=== PATIENT | male | born 1945 | race Caucasian/White ===

== ENCOUNTER 2016-12-19 11:05 | Outpatient (CLI) | payer MEDICARE ==
[2016-12-19 11:12] LABS: CREATININE 1.2 mg/dL (0.6-1.2)
--- NOTE | 2016-12-19 15:17 | MRI Report ---
EXAM: RIGHT KNEE MRI WITHOUT CONTRAST EXAM DATE: 12/19/2016 12:33 PM. CLINICAL HISTORY: Right knee pain after twisting injury 2 weeks ago. COMPARISON: None. TECHNIQUE: Multiplanar, multisequence T1-weighted and fluid-sensitive sequences of the knee without c ontrast. Other: None. FINDINGS: Bones and articular cartilage: No acute fracture or bone lesions. Normal marrow signal. Articular car tilage is within normal limits. Medial Meniscus: Horizontal tear at the posterior horn and body. Lateral Meniscus: Horizontal tear at the anterior horn. Small parameniscal cyst adjacent to the later al aspect of the anterior horn. Cruciate Ligaments: The anterior and posterior cruciate ligaments are intact. Collateral Ligaments: The medial collateral and lateral collateral ligamentous structures are intact. Tendons: There is mild quadriceps and patellar tendinosis. Enthesophytes at the anterosuperior and an teroinferior aspects of the patella, distal aspect of the quadriceps tendon, and proximal aspect of t he patellar tendon. The semimembranosus and popliteus tendons are unremarkable. Musculature: No edema or fatty atrophy. Other: Small joint effusion. No popliteal cyst. No loose bodies. The medial and lateral retinacula a re intact. Diffuse subcutaneous edema. IMPRESSION: 1. Horizontal tear at the posterior horn and body of the medial meniscus. 2. Horizontal tear at the anterior horn lateral meniscus. Small parameniscal cyst adjacent to the ant erior horn lateral meniscal tear. 3. Quadriceps and patellar tendinosis. Enthesophytes at the quadriceps and patellar tendon and patell a. 4. Small joint effusion. 5. Diffuse subcutaneous edema. [facility] MUSCULOSKELET[facility] SECTION Referring Provider Line: [phone] SITE ID: [id number]
== END 2016-12-19 11:06 | disposition home or self-care (01) ==
LOC: DI 11:05
PROVIDERS: ATTEND Internal Medicine
DX: S83.241A Other tear of medial meniscus, current injury, right knee, initial encounter (principal); S83.281A Other tear of lateral meniscus, current injury, right knee, initial encounter; M25.461 Effusion, right knee; M67.88 Other specified disorders of synovium and tendon, other site
CPT/HCPCS: 36415; 82565

== ENCOUNTER 2017-01-21 04:23 | Outpatient (CLI) | payer MEDICARE | END 2017-01-21 04:24 | disposition critical access hospital (66) | LOC: EMS 04:23 | PROVIDERS: ATTEND Surgery | DX: R53.1 Weakness (principal); R26.81 Unsteadiness on feet; R32 Unspecified urinary incontinence; W06.XXXA Fall from bed, initial encounter; Y92.003 Bedroom of unspecified non-institutional (private) residence as the place of occurrence of the external cause | CPT/HCPCS: A0425; A0429 ==

== ENCOUNTER 2017-01-21 04:34 | Inpatient (IN) | payer MEDICARE ==
[2017-01-21] MEDS ORDERED: SODIUM CHLORIDE 0.9% 1,000 ML IV ONE ×2 (04:44→05:48)
[2017-01-21] MEDS ORDERED: ACETAMINOPHEN 500 MG TABLET PO STA (04:44)
[2017-01-21] MEDS ORDERED: ACETAMINOPHEN 500 MG TABLET PO ONE (04:47)
--- NOTE | 2017-01-21 04:57 | ED Physician Documentation ---
History of Present Illness - Stated complaint Stated Complaint: GLF/FEVER/weakness - Chief complaint Chief Complaint: Fever - Additonal information Additional information: Patient is a 71-year-old man with a history of hypertension, dyslipidemia, atrial fibrillation and benign prostatic hypertrophy. He presents tonight with generalized weakness fever and chills and inability to get off of the floor after fall the bed. He denies any chest pain or cough. He is unaware that he had a fever until he presented to the emergency department. He has no complaints of abdominal pain but did have a couple episodes of nausea vomiting earlier in the evening. There are no lower urinary symptoms although his says he presented like this in the past when he had a urinary tract infection. He does have a history of atrial fibrillation controlled with diltiazem and Coumadin. For the most part his says he is in atrial fibrillation now. His only surgical history is a open cholecystectomy that the patient says was complicated. Review of systems: For pertinent positive and negatives in the review of systems please see history of present illness. Otherwise all other systems have been reviewed and are negative. Dragon disclaimer: Parts of this medical record were created using voice recognition technology. Because of the inherent limitations of this system occasional same sounding word substitutions do occur and persist despite proofreading. Please read the document for context. Review of Systems Constitutional: reports: Fever, Chills, Myalgias Nose: denies: Rhinorrhea / runny nose, Foreign Body Throat: denies: Dental pain / toothache Cardiac: denies: Chest pain / pressure, Palpitations, Pedal edema, Calf pain Respiratory: denies: Dyspnea, Cough GI: reports: Nausea, Vomiting. denies: Abdominal Pain, Abdominal Swelling, Constipation, Diarrhea, Hematemesis : denies: Dysuria, Frequency, Hesitancy, Unable to Void Skin: denies: Rash Musculoskeletal: denies: Neck pain, Back pain, Extremity pain, Joint pain Neurologic: denies: Generalized weakness, Focal weakness, Numbness, Difficulty speaking PD PAST MEDICAL HISTORY - Past Medical History Past Medical History: Yes Cardiovascular: Hypertension, Atrial fibrillation Respiratory: Sleep apnea, CPAP use Neuro: None Endocrine/Autoimmune: None GI: GERD : None HEENT: Other Psych: None Musculoskeletal: None Derm: None - Past Surgical History Past Surgical History: Yes General: Cholecystectomy, Colonoscopy, EGD - Present Medications Home Medications: Ambulatory Orders Medication Instructions Recorded Confirmed Diltiazem HCl [Cartia Xt] 360 mg PO DAILY 02/26/13 01/21/17 Hydrochlorothiazide 25 mg PO DAILY 02/26/13 01/21/17 Ibuprofen 800 mg PO TID PRN 02/26/13 01/21/17 Lisinopril [Zestril] 40 mg PO BID 02/26/13 01/21/17 Clonidine HCl 0.1 mg PO DAILY 07/04/13 01/21/17 Doxazosin [Cardura] 16 mg PO DAILY 07/04/13 01/21/17 Timolol 0.5% Ophth Drops [Timoptic] 1 drops OPTH DAILY 07/04/13 01/21/17 Warfarin Sodium 2.5 mg PO DAILY 10/06/14 01/21/17 Warfarin Sodium 5 mg PO DAILY 10/06/14 01/21/17 Cephalexin [Keflex] 500 mg PO BID 03/14/16 01/21/17 HYDROcod/ACETAM 5/325 [Pratts 5/325] 1 - 2 ea PO Q6H PRN #15 tablet 03/14/16 - Allergies Allergies/Adverse Reactions: Allergies Allergy/AdvReac Type Severity Reaction Status Date / Time No Known Drug Allergies Allergy Verified 01/21/17 04:51 - Social History Does the pt smoke?: No Smoking Status: Never smoker Does the pt drink ETOH?: Yes Does the pt have substance abuse?: No - Immunizations Immunizations are current?: No - POLST Patient has POLST: No PD ED PE NORMAL - Vitals Vital signs reviewed: Yes - General General: Alert and oriented X 3, No acute distress, Well developed/nourished, Other (Patient is awake and alert he is a little slow to respond. He is flushed in appearance and warm to touch.) - HEENT HEENT: Atraumatic, Other (Very dry oral mucosa) - Neck Neck: Supple, no meningeal sign, No bony TTP - Cardiac Cardiac: Other (Irregularly irregular rhythm, tachycardia noted) - Respiratory Respiratory: No respiratory distress (Mild tachypnea otherwise clear lungs bilaterally good air movement and no respiratory distress) - Abdomen Abdomen: Normal bowel sounds (Protuberant but soft abdomen without any focal tenderness, bowel sounds normal active) - Back Back: No CVA TTP - Derm Derm: Normal color, Other - Extremities Extremities: No deformity (Flushed in appearance warm to touch), No tenderness to palpate - Neuro Neuro: Alert and oriented X 3, business administrator 2-12 intact, No motor deficit, No sensory deficit, Normal speech - Psych Psych: Normal mood, Normal affect Results - Vitals Vitals: Vital Signs - 24 hr 01/21/17 01/21/17 01/21/17 04:36 05:27 05:34 Temperature 38.2 C H Heart Rate 147 H 134 H 133 H Respiratory 22 20 16 Rate Blood Pressure 127/103 H 179/109 H 159/95 H O2 Saturation 94 94 94 Oxygen O2 Source Room air - Labs Labs: Laboratory Tests 01/21/17 01/21/17 01/21/17 04:49 04:49 04:49 WBC 22.6 H RBC 6.19 H Hgb 17.1 Hct 52.1 H MCV 84.2 MCH 27.6 MCHC 32.9 RDW 15.5 H Plt Count 148 MPV 8.9 Neut # Not Reportable Lymph # Not Reportable [place] # Not Reportable Eos # Not Reportable Baso # Not Reportable Absolute Nucleated RBC Not Reportable Total Counted 100 Band Neuts % (Manual) 12 H Reactive Lymphs % (Man) 3 Neutrophils # (Manual) 20.3 H Lymphocytes # (Manual) 1.1 L Monocytes # (Manual) 1.1 H Nucleated RBCs Not Reportable Differential Comment MANUAL DIFFERENTIAL Manual Slide Review Indicated Platelet Estimate NORMAL (130-450,000) Platelet Morphology NORMAL APPEARANCE RBC Morph Micro Appear NORMAL APPEARANCE Sodium 141 Potassium 3.0 L Chloride 106 Carbon Dioxide 23 Anion Gap 12.0 BUN 23 H Creatinine 1.3 H Estimated GFR (MDRD) 55 L Glucose 134 H Lactic Acid Calcium 9.7 Total Bilirubin 2.2 H AST 29 ALT 27 Alkaline Phosphatase 65 Troponin I < 0.04 B-Natriuretic Peptide Total Protein 7.1 Albumin 4.1 Globulin 3.0 Albumin/Globulin Ratio 1.4 Lipase 17 L 01/21/17 01/21/17 04:49 04:49 WBC RBC Hgb Hct MCV MCH MCHC RDW Plt Count MPV Neut # Lymph # [place] # Eos # Baso # Absolute Nucleated RBC Total Counted Band [place]uts % (Manual) Reactive Lymphs % (Man) Neutrophils # (Manual) Lymphocytes # (Manual) Monocytes # (Manual) Nucleated RBCs Differential Comment Manual Slide Review Platelet Estimate Platelet Morphology RBC Morph Micro Appear Sodium Potassium Chloride Carbon Dioxide Anion Gap BUN Creatinine Estimated GFR (MDRD) Glucose Lactic Acid 2.4 H Calcium Total Bilirubin AST ALT Alkaline Phosphatase Troponin I B-Natriuretic Peptide 389 H Total Protein Albumin Globulin Albumin/Globulin Ratio Lipase PD MEDICAL DECISION MAKING - ED course Complexity details: reviewed old records, reviewed results, re-evaluated patient , considered differential, d/w patient, d/w family, other (Hospitalist) ED course: This patient is a 71-year-old male with a history of hypertension and atrial fibrillation who presents with a complaint of generalized weakness. He went to bed feeling normal then woke up with shaking chills. He accidentally slid out of bed and did not sustain any injury but had a difficult time getting back up and subsequently EMS was called. He never lost consciousness his was talking with him the entire time. He denies any pain to the head, neck, chest abdomen and has no other symptoms other than generalized weakness and chills. He was noted to have a temperature here of 100.8 but I suspect his core temperature is a little warmer. He was given Oral Tylenol and an IV line was started. Sepsis workup ensued and the patient was fluid resuscitated with 1 L of crystalloid. Blood cultures and serum lactate were obtained. A chest x-ray shows no acute intrathoracic disease. EKG demonstrates atrial fibrillation with rapid ventricular response of rate is 143 bpm the QRS is normal the QT is within normal limits at 269 ms. The patient was given rate control with Cardizem 10 mg IV push followed by a Cardizem drip at 5 mg/h. This is increased to 10 mg an hour an additional 10 mg are given as a bolus. Blood work on this patient shows marked elevation of his white count of 22,000 there is a bandemia and a serum lactate is elevated at 2.4. We finally obtained a urine and although it looks concentrated is not objectively infected at this time. After obtaining all of her tests he was treated empirically with 1 g of Invanz. This patient has no abdominal pain or tenderness I suspect intra- abdominal source less likely. Disposition: Admission to the hospital, ICU Clinical impression: 1. Severe sepsis 2. Source unknown at this time-no evidence of intra-abdominal source clinically 3. Atrial fibrillation with rapid ventricular response on diltiazem drip Critical care time: Approximately 45 minutes. This time is independent of any procedures
[2017-01-21] MEDS ORDERED: diltiaZEM INJ 5 MG/ML VIAL IVP STA ×2 (05:04→05:49)
[2017-01-21] MEDS ORDERED: diltiaZEM INJ 125 MG in DEXTROSE 5% 100 ML IV STA (05:04)
[2017-01-21 05:12] LABS: BASOPHILS % (AUTO) 0.2 %; HCT - HEMATOCRIT 52.1 % (42.0-52.0); HGB - HEMOGLOBIN 17.1 g/dL (14.0-18.0); LYMPHOCYTES % (AUTO) 2.1 %; MEAN CORPUSCULAR HEMOGLOBIN 27.6 pg (27.0-31.0); MEAN CORPUSCULAR HGB CONC 32.9 g/dL (32.0-36.0); MEAN CORPUSCULAR VOLUME 84.2 fL (80.0-94.0); MEAN PLATELET VOLUME 8.9 fL (7.4-11.4); MONOCYTES % (AUTO) 6.8 %; NEUTROPHILS % (AUTO) 90.9 %; RED BLOOD COUNT 6.19 10^6/uL (4.70-6.10); RED CELL DISTRIBUTION WIDTH 15.5 % (12.0-15.0); UNCORRECTED WHITE BLOOD COUNT 22.6 x10^3/uL; WHITE BLOOD COUNT 22.6 x10^3/uL (4.8-10.8)
[2017-01-21] MEDS ORDERED: diltiaZEM INJ 5 MG/ML VIAL ONE (05:13)
[2017-01-21 05:16] LABS: ALBUMIN/GLOBULIN RATIO 1.4 (1.0-2.2); BILIRUBIN,TOTAL 2.2 mg/dL (0.2-1.0); CALCIUM 9.7 mg/dL (8.5-10.3); CREATININE 1.3 mg/dL (0.6-1.2); TOTAL PROTEIN 7.1 g/dL (6.7-8.2)
--- NOTE | 2017-01-21 05:35 | XRAY Preliminary Report ---
Exam: XR Chest 1 View IMPRESSION: Small lung volumes. Mild CHF pattern. [facility] SITE ID: [id number]
--- NOTE | 2017-01-21 05:37 | XRAY Report ---
EXAM: CHEST RADIOGRAPHY EXAM DATE: 01/21/2017 05:04 AM. CLINICAL HISTORY: Fever, weakness, chills since last night. Fall. COMPARISON: 07/23/2013, 07/12/2013 TECHNIQUE: 1 view. FINDINGS: Lungs/Pleura: Small lung volumes. There is mild central pulmonary vascular congestion. No definite pn eumothorax or significant effusion. Mediastinum: Mild enlargement of the cardiac silhouette. Other: Right hemidiaphragm eventration. Severe right shoulder degenerative change. IMPRESSION: Small lung volumes. Mild CHF pattern. [facility] Referring Provider Line: [phone] SITE ID: [id number]
[2017-01-21 05:41] LABS: BAND NEUTROPHILS % (MANUAL) 12 %; LYMPHOCYTES % (MANUAL) 2 %; NEUTROPHILS % (MANUAL) 78 %; NP AUTO DIFFERENTIAL? YES; NP MAN DIFFERENTIAL? NO; PLATELET ESTIMATE, MANUAL NORMAL (130-450,000) (NORMAL); PLATELET MORPHOLOGY NORMAL APPEARANCE (NORMAL); TOTAL CELLS COUNTED 100
[2017-01-21] MEDS ORDERED: ERTAPENEM 1 GM in SODIUM CHLORIDE 0.9% MINIBAG 100 ML IV STA (06:12)
[2017-01-21 06:19] LABS: BILIRUBIN,URINE NEGATIVE (NEGATIVE)
[2017-01-21 06:38] LABS: UA w/ MICROSCOPIC CHARGE YES
[2017-01-21 06:44] LABS: UR CULTURE IF IND NOT INDICATED; WBC,URINE 0-3 /HPF (0-3)
[2017-01-21] MEDS ORDERED: ONDANSETRON ODT 4 MG TABLET TL PRN (06:49)
[2017-01-21] MEDS ORDERED: SODIUM CHLORIDE FLUSH 0.9% 10 ML SYRINGE IVP PRN (06:49)
[2017-01-21] MEDS ORDERED: ONDANSETRON 4 MG/2 ML VIAL IVP PRN (06:49)
[2017-01-21] MEDS ORDERED: ACETAMINOPHEN 325 MG TABLET PO PRN (06:49)
[2017-01-21] MEDS ORDERED: HYDROcod/ACETAM 5/325 MG TABLET PO PRN (06:49)
[2017-01-21] MEDS ORDERED: PIPERACILLIN/TAZOBACTAM 3.375 GM in SODIUM CHLORIDE 0.9% MINIBAG 100 ML IV SCH (06:55)
--- NOTE | 2017-01-21 07:39 | CT Preliminary Report ---
Exam: CT Abdomen/Pelvis W/O IMPRESSION: 1. No kidney stone or hydronephrosis. 2. Nonspecific bilateral perinephric fat stranding, nonspecific perinephric lymphedema versus infecti on. 3. Status post cholecystectomy. 4. Moderate to severe descending and severe sigmoid diverticulosis without diverticulitis. 5. Small bilateral fat-containing inguinal hernias. 6. Subsegmental bibasilar as well as patchy left basilar airspace disease. These likely reflect a com bination of atelectasis, aspiration, and/or pneumonia. SITE ID: [id number]
--- NOTE | 2017-01-21 07:42 | CT Report ---
EXAM: CT ABDOMEN AND PELVIS (CT KUB) EXAM DATE: 01/21/2017 07:21 AM. CLINICAL HISTORY: Severe sepsis. COMPARISONS: None. TECHNIQUE: Routine axial helical CT imaging was performed through the abdomen and pelvis without IV c ontrast. Reconstructions: Coronal and sagittal. In accordance with CT protocol optimization, one or more of the following dose reduction techniques w ere utilized for this exam: automated exposure control, adjustment of mA and/or KV based on patient s ize, or use of iterative reconstructive technique. FINDINGS: Lack of intravenous contrast reduces exam sensitivity and specificity. Kidneys and ureters: There is no hydronephrosis or evident kidney stone. There is a 3.1 cm cyst arisi ng from the posterior aspect of the right mid to lower kidney (image 47 series 3 posterior. There is a anterolaterally located left upper kidney cyst measuring 4.4 x 4.2 cm (image 49 series 3 close term . Nonspecific bilateral perinephric fat stranding. Abdominal Solid Organs: Abdominal parenchymal organs are without significant abnormality within the c onfines of a noncontrast exam. Status post cholecystectomy. Bowel: No evidence of bowel obstruction. Average amount of retained fecal material. Severe sigmoid di verticulosis noted. Moderate to severe descending colon diverticulosis. No evidence of diverticulitis . Appendix: Normal. Lymph Nodes: No definite pathologic lymphadenopathy. Fluid: No significant ascites. Vasculature: Normal caliber aorta. Pelvis: No bladder stones. There are small bilateral fat-containing inguinal hernias. Mild prostate h ypertrophy. Bones: No definite suspicious bony lesions demonstrated. Lower Chest: Small subsegmental opacities within the lower lobes bilaterally, right greater than left . Additional patchy posterior left lower lobe airspace disease. No effusion. IMPRESSION: 1. No kidney stone or hydronephrosis. 2. Nonspecific bilateral perinephric fat stranding, nonspecific perinephric lymphedema versus infecti on. 3. Status post cholecystectomy. 4. Moderate to severe descending and severe sigmoid diverticulosis without diverticulitis. 5. Small bilateral fat-containing inguinal hernias. 6. Subsegmental bibasilar as well as patchy left basilar airspace disease. These likely reflect a com bination of atelectasis, aspiration, and/or pneumonia. Referring Provider Line: [phone] SITE ID: [id number]
[2017-01-21] MEDS ORDERED: VANCOMYCIN INJ 2 GM in SODIUM CHLORIDE 0.9% 500 ML IV ONE (08:00)
[2017-01-21] MEDS ORDERED: diltiaZEM INJ 125 MG in DEXTROSE 5% 100 ML IV SCH (08:00)
[2017-01-21] MEDS: SODIUM CHLORIDE 0.9% 1,000 ML IV SCH ×2 (08:22→22:26)
[2017-01-21] MEDS ORDERED: WARFARIN 2.5 MG TABLET PO SCH (09:00)
[2017-01-21] MEDS: TIMOLOL 0.5% OPHTH DROPS EACHEYE SCH (12:56)
[2017-01-21] MEDS: diltiaZEM INJ 125 MG in DEXTROSE 5% 100 ML IV SCH ×2 (13:04→21:42)
--- NOTE | 2017-01-21 14:12 | HISTORY & PHYSICAL EXAMINATION ---
Chief Complaint - Chief Complaint Chief Complaint: confusion and weakness History of Present Illness - Admitted From Admitted From:: emergency department - History Obtained From Records Reviewed: yes History obtained from: patient and his Exam Limitations: none - History of Present Illness HPI Comment/Other: Patient is a 71-year-old gentleman with a past medical history significant for atrial fibrillation on Coumadin, obstructive sleep apnea on CPAP, hypertension, BPH, glaucoma, history of cellulitis and history of prostatitis who presented to the emergency department with a chief complaint of generalized weakness and confusion. The patient states he was in his normal state of health until yesterday when he states he was feeling as though he had no energy, he felt drowsy and began having nausea and vomited several times last night. The patient states that he has baseline shortness of air that is not any worse the last couple of days. He denies having had any cough. He does state that he's been having chills which started yesterday and continued throughout the night. The patient states that he has not had any fevers at home. The patient denies any abdominal pain but his does state that the patient's abdomen has been more swollen. The patient admits to increased lower extremity swelling however he states that this has occurred over the last number of months. The patient does state that he has been having to void more frequently than normal. He states that he notices he has pain in his bilateral flanks and this signals to him that he needs to go to the bathroom and he has to urinate. The patient denies any dysuria. The patient denies any headaches, blurred vision, runny nose , sore throat, abdominal pain, diarrhea, constipation, joint pains, muscle aches , back pain, neck stiffness, weight loss or any focal neurologic deficits. This morning the patient states that he woke up and he was so weak that he could not get himself out of bed he states he rolled over and then fell onto the floor beside the bed. He states he could not get up from the floor. He states he called out to his and granddaughter who came over but could not help him up therefore his called 911. The patient's states that the patient was confused when he was on the floor and was not following directions so they could not get him up off the floor. On presentation to the emergency department the patient was febrile with a temperature of 38.2 he was tachycardic in A. fib with RVR with heart rate in the 140s, he was tachypneic up to respiratory rate of 22 the blood pressure was stable. The patient underwent routine lab work which revealed a leukocytosis of 22.6 with a 12% bandemia. The patient's lactic acid was elevated at 2.4. The patient had a normal urinalysis. The patient's chest x-ray revealed small lung volumes with mild CHF pattern. The patient's CT abdomen and pelvis revealed nonspecific bilateral perinephric fat stranding nonspecific, perinephric lymphedema versus infection. The patient was also found to have subsegmental bibasilar as well as patchy left basilar airspace disease. The patient was admitted for severe sepsis likely secondary to pyelonephritis. Review of Systems - Other Findings Other Findings: A comprehensive review of systems was performed the pertinent positives and negatives are stated above in the HPI and the remainder of the review of systems is negative. History - Past Medical History Cardiovascular: reports: Hypertension, Atrial fibrillation Respiratory: reports: Sleep apnea, CPAP use Neuro: reports: None Endocrine/Autoimmune: reports: None GI: reports: GERD : reports: None HEENT: reports: Other Psych: reports: None Musculoskeletal: reports: None Derm: reports: None MRSA Hx?: No Other Past Medical History: 1. Hypertension. 2. Atrial fibrillation on Coumadin. 3. BPH. 4. Obstructive sleep apnea on CPAP. 4. Glaucoma. 5. Cholecystectomy. 6. Excision of lipoma. 7. History of cellulitis of the right leg. 8. History of prostatitis - Past Surgical History General: reports: Cholecystectomy, Colonoscopy, EGD - Family & Social History Family History: Mother: Alzheimer's Disease, Father: , [place], Sister: CVA/ TIA Family History Comment/Other: Patient's father had an [place] a young age. Patient's mother has Alzheimer's and is still living at age of 94. Patient's sister has had a stroke. Living arrangement: At home Living Situation: With spouse/s.o. Social History Notes: The patient was born in [facility] but he was in a [employer] and traveled all over the country. He states he went to school in [place] and was in the [employer] himself for 2 years. 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 He has 2 children both of whom live in the area. The patient lives in [place]: With his they have lived in [facility] since 1973. The patient has never smoked he does drink beer now and then. He denies any illicit drug use. - Substance History Use: Uses substance without health or social issues: NONE Abuse: Recurrent use of substance despite neg consequences: NONE Dependence: Experiences withdrawal or developed tolerances: NONE - POLST Patient has POLST: No POLST Status: Full Code Meds/Allgy - Home Medications Home Medications: Ambulatory Orders Medication Instructions Recorded Confirmed Diltiazem HCl [Cartia Xt] 360 mg PO DAILY 02/26/13 01/21/17 Hydrochlorothiazide 25 mg PO DAILY 02/26/13 01/21/17 Lisinopril [Zestril] 40 mg PO BID 02/26/13 01/21/17 Doxazosin [Cardura] 16 mg PO DAILY 07/04/13 01/21/17 Timolol 0.5% Ophth Drops [Timoptic] 2 drops EACHEYE BID 07/04/13 01/21/17 Warfarin Sodium 5 mg PO DAILY 10/06/14 01/21/17 Ibuprofen [Motrin] 800 mg PO Q8H PRN 01/21/17 01/21/17 [place]-3/Dha/Epa/Fish Oil [[place]-3 1 each PO BID 01/21/17 01/21/17 Fish Oil EC 1,000 mg] Omeprazole [PriLOSEC] 20 mg PO DAILY 01/21/17 01/21/17 cloNIDine [Catapres] 0.1 mg PO BID 01/21/17 01/21/17 - Allergies Allergies/Adverse Reactions: Allergies Allergy/AdvReac Type Severity Reaction Status Date / Time No Known Drug Allergies Allergy Verified 01/21/17 04:51 Exam - Vital Signs Reviewed Vital Signs: Yes Vital Signs: Vital Signs x48h Temp Pulse Resp BP BP Pulse Ox 01/21/17 13:04 132/83 H 01/21/17 12:00 83 27 H 126/79 01/21/17 11:00 88 28 H 119/81 H 97 01/21/17 10:00 85 124/84 H 24 L 01/21/17 09:00 100 24 124/79 96 01/21/17 08:19 143/74 H 07/16/17 08:00 37.5 C 114 H 23 143/74 H 97 - Physical Exam General Appearance: positive: Alert, Mild distress (tachypneic) Eyes Bilateral: positive: Normal inspection, PERRL, EOMI, No lid inflammation, Conjunctivae nml, No scleral icterus ENT: positive: ENT inspection nml, Pharynx nml, Dry mucous membranes. negative : Purulent nasal drainage, Pharyngeal erythema, Oral lesions Neck: positive: Nml inspection, Thyroid nml, No JVD, Trachea midline. negative : Thyromegaly, Lymphadenopathy (R), Lymphadenopathy (L), Carotid bruit, Tracheal deviation Respiratory: positive: Chest non-tender, No respiratory distress, Rales ( bibasilar). negative: Wheezes, Rhonchi Cardiovascular: positive: No murmur, No gallop, Irregularly irregular, Tachycardia Peripheral Pulses: positive: 2+ Abdomen: positive: Non-tender, No organomegaly, Nml bowel sounds, Other ( distended). negative: Guarding, Rebound, Hepatomegaly Rectal: positive: Non-tender, Hemorrhoid, Enlarged prostate. negative: Tender prostate Back: positive: Nml inspection, CVA tenderness (R), CVA tenderness (L) Skin: positive: Color nml, No rash, Dry. negative: Cyanosis, Pallor Extremities: positive: Non-tender, Full ROM, Pedal edema (bilateral 3+ pitting edema). negative: Joint swelling Neurologic/Psychiatric: positive: Oriented x3, CN's nml (2-12), Motor nml, Sensation nml, Mood/affect nml Conclusion/Plan - Problem List (1) Severe sepsis Conclusion/Plan: Patient presented with 4 out of 4 SIRS criteria. Temperature on presentation was 38.2, WBC was 22.6, heart rate was 147 and respiratory rate was 22. Patient's lactic acid was elevated at 2.4. Patient was normotensive. Patient had encephalopathy at home prior to presentation He had generalized weakness Source of sepsis appears to be likely from pyelonephritis but there may also be pneumonia. Plan: Treat with broad-spectrum antibiotics patient started on IV vancomycin and IV Zosyn Blood cultures x2 IV fluids Monitor closely in the intensive care unit Hold antihypertensives until more stable Repeat lactic acid (2) Atrial fibrillation with rapid ventricular response Conclusion/Plan: Patient with history of atrial fibrillation on Coumadin. Patient presented with A. fib with RVR likely secondary to acute sepsis. Patient initially given IV diltiazem without improvement in rapid rate. Plan Placed on diltiazem drip IV and continue home dose of diltiazem by mouth Check INR Continue Coumadin (3) Pyelonephritis Conclusion/Plan: CT of the abdomen and pelvis shows bilateral fat stranding around the kidneys concerning for bilateral polynephritis and setting of severe sepsis Patient's UA was negative and he did not have any prostate tenderness. The patient had bilateral CVA tenderness and was having CVA tenderness at home with increased urinary frequency Plan: Given presentation with severe sepsis we'll treat with broad-spectrum IV antibiotics started on IV Vanco and Zosyn Await blood cultures to de-escalate antibiotic Give IV fluids (4) CAP (community acquired pneumonia) Conclusion/Plan: Patient presented with severe sepsis and was tachypneic but not hypoxic and does have chronic shortness of air but not acute in no acute cough. Given patient's symptoms the primary cause of the patient's severe sepsis does not appear to be pneumonia however patient may be developing early pneumonia secondary to atelectasis to to severe sepsis. Plan: Treat for community acquired pneumonia with IV antibiotics we will give broad- spectrum IV antibiotics given presentation with severe sepsis. (5) Hypertension Conclusion/Plan: Patient hypertensive on presentation and also tachycardic with A. fib RVR Patient being placed on diltiazem drip for A. fib RVR and oral diltiazem. We'll hold other antihypertensives at this time and monitor blood pressure given sepsis the Qualifiers: Hypertension type: essential hypertension Qualified Code(s): I10 - Essential (primary) hypertension (6) RAUL on CPAP Conclusion/Plan: continue on home CPAP - Lab Results Lab results reviewed: Yes Fish Bones: 01/21/17 04:49 01/21/17 04:49 Other Lab Results: Laboratory Results WBC 22.6 x10^3/uL (4.8-10.8) H 01/21/17 04:49 RBC 6.19 10^6/uL (4.70-6.10) H 01/21/17 04:49 Hgb 17.1 g/dL (14.0-18.0) 01/21/17 04:49 Hct 52.1 % (42.0-52.0) H 01/21/17 04:49 MCV 84.2 fL (80.0-94.0) 01/21/17 04:49 MCH 27.6 pg (27.0-31.0) 01/21/17 04:49 MCHC 32.9 g/dL (32.0-36.0) 01/21/17 04:49 RDW 15.5 % (12.0-15.0) H 01/21/17 04:49 Plt Count 148 10^3/uL (130-450) 01/21/17 04:49 MPV 8.9 fL (7.4-11.4) 01/21/17 04:49 Neut # Not Reportable 01/21/17 04:49 Lymph # Not Reportable 01/21/17 04:49 Ness # Not Reportable 01/21/17 04:49 Eos # Not Reportable 01/21/17 04:49 Baso # Not Reportable 01/21/17 04:49 Absolute Nucleated RBC Not Reportable 01/21/17 04:49 Total Counted 100 01/21/17 04:49 Band Neuts % (Manual) 12 % (0-10) H 01/21/17 04:49 Reactive Lymphs % (Man) 3 % 01/21/17 04:49 Neutrophils # (Manual) 20.3 10^3/uL (1.5-6.6) H 01/21/17 04:49 Lymphocytes # (Manual) 1.1 10^3/uL (1.5-3.5) L 01/21/17 04:49 Monocytes # (Manual) 1.1 10^3/uL (0.0-1.0) H 01/21/17 04:49 Nucleated RBCs Not Reportable 01/21/17 04:49 Differential Comment MANUAL DIFFERENTIAL 01/21/17 04:49 Manual Slide Review Indicated 01/21/17 04:49 Platelet Estimate NORMAL (130-450,000) (NORMAL) 01/21/17 04:49 Platelet Morphology NORMAL APPEARANCE (NORMAL) 01/21/17 04:49 RBC Morph Micro Appear NORMAL APPEARANCE (NORMAL) 01/21/17 04:49 Sodium 141 mmol/L (135-145) 01/21/17 04:49 Potassium 3.0 mmol/L (3.5-5.0) L 01/21/17 04:49 Chloride 106 mmol/L (101-111) 01/21/17 04:49 Carbon Dioxide 23 mmol/L (21-32) 01/21/17 04:49 Anion Gap 12.0 (6-13) 01/21/17 04:49 BUN 23 mg/dL (6-20) H 01/21/17 04:49 Creatinine 1.3 mg/dL (0.6-1.2) H 01/21/17 04:49 Estimated GFR (MDRD) 55 (>89) L 01/21/17 04:49 Glucose 134 mg/dL (70-100) H 01/21/17 04:49 Lactic Acid 2.4 mmol/L (0.5-2.2) H 01/21/17 04:49 Calcium 9.7 mg/dL (8.5-10.3) 01/21/17 04:49 Total Bilirubin 2.2 mg/dL (0.2-1.0) H 01/21/17 04:49 AST 29 IU/L (10-42) 01/21/17 04:49 ALT 27 IU/L (10-60) 01/21/17 04:49 Alkaline Phosphatase 65 IU/L (42-121) 01/21/17 04:49 Troponin I < 0.04 ng/mL (<0.49) 01/21/17 04:49 B-Natriuretic Peptide 389 pg/mL (5-100) H 01/21/17 04:49 Total Protein 7.1 g/dL (6.7-8.2) 01/21/17 04:49 Albumin 4.1 g/dL (3.2-5.5) 01/21/17 04:49 Globulin 3.0 g/dL (2.1-4.2) 01/21/17 04:49 Albumin/Globulin Ratio 1.4 (1.0-2.2) 01/21/17 04:49 Lipase 17 U/L (22-51) L 01/21/17 04:49 Urine Color YELLOW 01/21/17 06:09 Urine Clarity CLEAR (CLEAR) 01/21/17 06:09 Urine pH 6.0 PH (5.0-7.5) 01/21/17 06:09 Ur Specific [place] 1.015 (1.002-1.030) 01/21/17 06:09 Urine Protein 30 mg/dL (NEGATIVE) H 01/21/17 06:09 Urine Glucose (UA) NEGATIVE mg/dL (NEGATIVE) 01/21/17 06:09 Urine Ketones NEGATIVE mg/dL (NEGATIVE) 01/21/17 06:09 Urine Occult Blood NEGATIVE (NEGATIVE) 01/21/17 06:09 Urine Nitrite NEGATIVE (NEGATIVE) 01/21/17 06:09 Urine Bilirubin NEGATIVE (NEGATIVE) 01/21/17 06:09 Urine Urobilinogen 1 (NORMAL) E.U./dL (NORMAL) 01/21/17 06:09 Ur Leukocyte Esterase NEGATIVE (NEGATIVE) 01/21/17 06:09 Urine RBC None Seen /HPF (0-5) 01/21/17 06:09 Urine WBC 0-3 /HPF (0-3) 01/21/17 06:09 Ur Squamous Epith Cells NONE SEEN (<= Few) 01/21/17 06:09 Urine Bacteria None Seen /HPF (None Seen) 01/21/17 06:09 Ur Microscopic Review INDICATED 01/21/17 06:09 Urine Culture Comments NOT INDICATED 01/21/17 06:09 - Diagnostic Imaging Results Diagnostic Imaging Results: positive: Final report reviewed Diagnostic Imaging Results Comments: CT abdomen/pelvis: Impression: 1. No kidney stone and hydronephrosis 2. Nonspecific bilateral perinephric fat stranding, nonspecific perinephric lymphedema versus infection. 3. Status post cholecystectomy. 4. Moderate to severe descending and severe sigmoid diverticulosis without diverticulitis. 5. Small bilateral fat containing inguinal hernias. 6. Subsegmental bibasilar as well as patchy left basilar airspace disease. These likely reflect a combination of atelectasis, aspiration and/or pneumonia. Chest x-ray: Impression: Small lung volumes. Mild CHF pattern Echocardiogram: Left ventricular size is normal. Mild concentric left ventricular hypertrophy. Overall left ventricular systolic function is normal with an ejection fraction of 70-75%. Moderate right atrial enlargement. Mildly abnormal right heart pressures with right ventricular systolic pressure at rest of 45 mmHg. No mass or thrombus identified. - EKG Results EKG Interpreted Independently: Yes Issues/Core Measures - Anticipated LOS Anticipated Stay Length: 2 or more midnights - DVT/VTE - Prophylaxis VTE/DVT Prophylaxis med ordered at admit?: No Not Ordered - Medical Reason: Not indicated (on Coumadin)
[2017-01-21] MEDS: WARFARIN 5 MG TABLET PO SCH (14:54)
[2017-01-21] MEDS ORDERED: VANCOMYCIN WEIGHT BASED (PHA COMPOUNDING) IV SCH (15:00)
[2017-01-21] MEDS: PIPERACILLIN/TAZOBACTAM 3.375 GM in SODIUM CHLORIDE 0.9% MINIBAG 100 ML IV SCH ×2 (16:06→21:45)
[2017-01-21] MEDS: SODIUM CHLORIDE FLUSH 0.9% 10 ML SYRINGE IVP SCH ×2 (16:07→22:10)
[2017-01-21] MEDS ORDERED: POTASSIUM CHLORIDE 20 MEQ TABLET PO ONE ×2 (16:50→20:03)
[2017-01-21] MEDS ORDERED: VANCOMYCIN INJ 1 GM, VANCOMYCIN INJ 250 MG in SODIUM CHLORIDE 0.9% 250 ML IV SCH (21:00)
[2017-01-21 21:17] LABS: INR 2.5 (0.8-1.2); PT - PROTHROMBIN TIME 28.8 secs (9.9-12.6)
[2017-01-22] MEDS: SODIUM CHLORIDE 0.9% 1,000 ML IV SCH ×2 (03:01→14:22)
[2017-01-22] MEDS: PIPERACILLIN/TAZOBACTAM 3.375 GM in SODIUM CHLORIDE 0.9% MINIBAG 100 ML IV SCH (03:01)
[2017-01-22 06:21] LABS: BASOPHILS # (AUTO) 0.1 10^3/uL (0.0-0.1); BASOPHILS % (AUTO) 0.3 %; EOSINOPHILS % (AUTO) 0.1 %; HCT - HEMATOCRIT 46.4 % (42.0-52.0); HGB - HEMOGLOBIN 14.9 g/dL (14.0-18.0); LYMPHOCYTES # (AUTO) 1.2 10^3/uL (1.5-3.5); LYMPHOCYTES % (AUTO) 6.7 %; MEAN CORPUSCULAR HEMOGLOBIN 27.7 pg (27.0-31.0); MEAN CORPUSCULAR HGB CONC 32.2 g/dL (32.0-36.0); MEAN PLATELET VOLUME 9.2 fL (7.4-11.4); MONOCYTES % (AUTO) 5.4 %; NEUTROPHILS # (AUTO) 15.8 10^3/uL (1.5-6.6); NEUTROPHILS % (AUTO) 87.5 %; RED BLOOD COUNT 5.39 10^6/uL (4.70-6.10); RED CELL DISTRIBUTION WIDTH 15.8 % (12.0-15.0); UNCORRECTED WHITE BLOOD COUNT 18.1 x10^3/uL; WHITE BLOOD COUNT 18.1 x10^3/uL (4.8-10.8)
[2017-01-22 06:31] LABS: CALCIUM 8.6 mg/dL (8.5-10.3); CREATININE 1.5 mg/dL (0.6-1.2); POTASSIUM 3.7 mmol/L (3.5-5.0)
[2017-01-22 06:35] LABS: PHOSPHORUS 2.4 mg/dL (2.5-4.6)
[2017-01-22] MEDS: diltiaZEM INJ 125 MG in DEXTROSE 5% 100 ML IV SCH ×2 (07:02→14:10)
[2017-01-22] MEDS: SODIUM CHLORIDE FLUSH 0.9% 10 ML SYRINGE IVP SCH ×3 (07:03→21:49)
[2017-01-22] MEDS: NEUTRA-PHOS 250 MG TABLET PO SCH ×2 (07:09→08:55)
[2017-01-22] MEDS: diltiaZEM CD 180 MG CAPSULE PO SCH (08:55)
[2017-01-22] MEDS: TIMOLOL 0.5% OPHTH DROPS EACHEYE SCH (08:58)
[2017-01-22] MEDS ORDERED: cefTRIAXone 2 GM in SODIUM CHLORIDE 0.9% MINIBAG 100 ML IV SCH (09:00)
[2017-01-22] MEDS: AZITHROMYCIN INJ 500 MG in SODIUM CHLORIDE 0.9% 250 ML IV SCH (10:01)
[2017-01-22] MEDS: WARFARIN 5 MG TABLET PO SCH (14:22)
--- NOTE | 2017-01-22 18:10 | PROVIDER PROGRESS NOTE ---
Assessment/Plan - Problem List (1) Severe sepsis Assessment/Plan: Patient presented with 4 out of 4 SIRS criteria. Temperature on presentation was 38.2, WBC was 22.6, heart rate was 147 and respiratory rate was 22. Patient's lactic acid was elevated at 2.4. Patient was normotensive. Patient had encephalopathy at home prior to presentation He had generalized weakness Patient has bacteremia with Strep Agalactiae Source likely left lower extremity cellulitis although patients CT abd did show pyelo and pneumonia but pyelo very unlikely to be group b strep Echo negative for endocarditis Repeat lactic acid normal WBC down to 18.1 from 22.6 Will de-escalate abx to ceftriaxone which will cover strep agalactiae Monitor closely but maybe able to transfer to Med/surg today (2) Bacteremia Conclusion/Plan: Blood cx positive for strep agalactiae Likely cause of sepsis Likely source is cellulitis could also be pneumonia On IV ceftriaxone day 1 today stopped vanco and zosyn Repeat blood cx to ensure it clears Echo negative (3) Atrial fibrillation with rapid ventricular response Conclusion/Plan: Patient with history of atrial fibrillation on Coumadin. Patient presented with A. fib with RVR likely secondary to acute sepsis. Patient initially given IV diltiazem without improvement in rapid rate. On Dilt drip through the night Patients HR stable after PO dilt Will wean off dilt drip If weaned off transfer to Med/Surg Improving Continue coumadin INR therapeutic (4) Cellulitis Conclusion/Plan: Left lower extremity This morning redness, swelling, tenderness and warmth or left lower extremity Patient has cellulitis and this is the most likely source for gram positive bacteremia On IV ceftriaxone Monitor (5) Pyelonephritis Conclusion/Plan: CT of the abdomen and pelvis shows bilateral fat stranding around the kidneys concerning for bilateral polynephritis and setting of severe sepsis Patient's UA was negative and he did not have any prostate tenderness. The patient had bilateral CVA tenderness and was having CVA tenderness at home with increased urinary frequency Given presentation with severe sepsis was started on broad-spectrum IV antibiotics started on IV Vanco and Zosyn Blood cx showing group b strep which is very unusual organism for pyelo Changed abx to ceftriaxone which will cover pyelo and group b strep IVFs (6) CAP (community acquired pneumonia) Conclusion/Plan: Patient presented with severe sepsis and was tachypneic but not hypoxic and does have chronic shortness of air but not acute in no acute cough. Given patient's symptoms the primary cause of the patient's severe sepsis does not appear to be pneumonia however patient may be developing early pneumonia secondary to atelectasis to to severe sepsis. On IV ceftriaxone and azithro Blood cx positive group b strep possibly cause of pneumonia (7) Hypertension Conclusion/Plan: Patient hypertensive on presentation and also tachycardic with A. fib RVR Patient being placed on diltiazem drip for A. fib RVR and oral diltiazem. 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 - Current Meds Current Meds: Current Medications Generic Name Dose Route Start Last Admin Trade Name Freq PRN Reason Stop Dose Admin Diltiazem HCl 360 mg 01/22/17 09:00 01/22/17 08:55 Cardizem Cd PO 360 mg DAILY MARY ANNE Administration Sodium Chloride 1,000 mls @ 100 mls/hr 01/21/17 07:00 01/22/17 14:22 Normal Saline 0.9% IV 100 mls/hr .Q10H MARY ANNE Administration Azithromycin 500 mg/ Sodium 250 mls @ 250 mls/hr 01/22/17 10:00 01/22/17 10:01 Chloride IV 250 mls/hr DAILY@1000 MARY ANNE Administration Ceftriaxone Sodium 2 gm/ 100 mls @ 200 mls/hr 01/22/17 09:00 01/22/17 09:02 Sodium Chloride IV 200 mls/hr DAILY MARY ANNE Administration Sodium Chloride 10 ml 01/21/17 14:00 01/22/17 07:03 Normal Saline Flush 0.9% IVP Not Given Q8HR MARY ANNE Timolol Maleate 1 drops 01/21/17 09:00 01/22/17 08:58 Timoptic 0.5% Ophth Drops EACHEYE 1 drops DAILY MARY ANNE Administration Warfarin Sodium 5 mg 01/21/17 14:00 01/22/17 14:22 Coumadin PO 5 mg QDWARFARIN MARY ANNE Administration - Lab Result Lab results reviewed: Yes Fish Bone Diagrams: 01/22/17 05:03 01/22/17 05:03 - Diagnostic Imaging Results Diagnostic Imaging Results: Final report reviewed - Additional Planning Condition/Complexity: Critical My Orders: My Active Orders 01/22/17 09:00 [id number] [Rocephin] 2 gm Sodium Chloride 0.9% Minibag [Normal Saline 0.9% Minibag] 100 ml IV DAILY diltiaZEM CD [Cardizem Cd] 360 mg PO DAILY 01/22/17 10:00 Azithromycin Inj [Zithromax Inj] 500 mg Sodium Chloride 0.9% [Normal Saline 0.9%] 250 ml IV DAILY@1000 01/22/17 17:37 Admit \ Transfer \ Status [RC] ONCE 01/22/17 17:38 Vital Signs [RC] Q4HR 01/22/17 17:44 Telemetry- [RC] Q4HR Plan Discussed with:: Patient, Family Time Spent: Greater than 60 minutes Subjective - Subjective Patient Reports: Other (Still feels very weak. Has swelling and redness this morning of the left leg and leg is tender. No fevers overnight. Feels short of breath.) Nursing Reports: No Complaints Objective Vital Signs: Vital Signs - 24 hr 01/21/17 01/21/17 01/21/17 18:00 19:00 20:00 Temperature 36.8 C Heart Rate [ 81 84 90 Monitoring electrodes] Respiratory 25 H 25 H 29 H Rate Blood Pressure Blood Pressure 118/86 H 125/78 130/78 [Left Brachial artery] O2 Saturation 95 01/21/17 01/21/17 01/21/17 21:00 21:42 22:00 Temperature Heart Rate [ 88 95 Monitoring electrodes] Respiratory 31 H 25 H Rate Blood Pressure 140/84 H Blood Pressure 140/84 H 133/94 H [Left Brachial artery] O2 Saturation 95 95 01/21/17 01/21/17 01/22/17 23:00 23:59 01:00 Temperature Heart Rate [ 89 76 72 Monitoring electrodes] Respiratory 23 18 19 Rate Blood Pressure Blood Pressure 134/84 H 121/91 H 109/77 [Left Brachial artery] O2 Saturation 95 95 86 L 01/22/17 01/22/17 01/22/17 02:00 03:00 04:00 Temperature 37.3 C Heart Rate [ 87 93 86 Monitoring electrodes] Respiratory 13 25 H 13 Rate Blood Pressure Blood Pressure 129/74 124/79 127/90 H [Left Brachial artery] O2 Saturation 97 94 97 01/22/17 01/22/17 01/22/17 05:00 06:00 07:00 Temperature 37.7 C H Heart Rate [ 94 88 101 H Monitoring electrodes] Respiratory 23 17 21 Rate Blood Pressure Blood Pressure 141/86 H 137/96 H 153/99 H [Left Brachial artery] O2 Saturation 96 97 96 01/22/17 01/22/17 01/22/17 08:00 09:00 09:56 Temperature Heart Rate [ 97 107 H 95 Monitoring electrodes] Respiratory 27 H 28 H Rate Blood Pressure Blood Pressure 151/96 H [Left Brachial artery] O2 Saturation 96 95 01/22/17 01/22/17 01/22/17 10:00 10:43 11:00 Temperature Heart Rate [ 98 101 H Monitoring electrodes] Respiratory 17 17 Rate Blood Pressure Blood Pressure 160/102 H 140/88 H 118/84 H [Left Brachial artery] O2 Saturation 96 96 01/22/17 01/22/17 01/22/17 12:00 13:00 14:00 Temperature Heart Rate [ 94 96 97 Monitoring electrodes] Respiratory 31 H 25 H 27 H Rate Blood Pressure Blood Pressure 153/103 H 150/97 H 128/68 [Left Brachial artery] O2 Saturation 96 97 96 01/22/17 01/22/17 01/22/17 15:00 16:00 17:00 Temperature 36.2 C L Heart Rate [ 102 H 103 H 97 Monitoring electrodes] Respiratory 28 H 30 H 28 H Rate Blood Pressure Blood Pressure 145/106 H 157/97 H 157/96 H [Left Brachial artery] O2 Saturation 96 95 98 Oxygen O2 Source CPAP I&O (Last 24 Hrs): Intake and Output Totals x24h 01/20/17 01/21/17 01/22/17 23:59 23:59 23:59 Intake Total 2900 4002 Output Total 675 675 Balance 2225 3327 General: Alert, Oriented x3, Cooperative, Mild distress (tachypnic, uncomfortable) HEENT: Atraumatic, PERRLA, EOMI, Other (dry mucus membranes) Neck: Supple, No JVD, No thyromegaly, +2 carotid pulse wo bruit, No LAD Lymphatic: no adenopathy Neuro: Alert, Focal Deficits, CN 2-12 Grossly Intact, Oriented Times 3 Cardiovascular: No murmurs, Other (Irregularly irregular, tachycardic) Respiratory: Chest non-tender, Rales, Rhonchi (bilateral) Abdomen: Normal bowel sounds, Soft, No tenderness, No hepatospenomegaly, Other ( distended, CVA tenderness) Extremities: No clubbing, No cyanosis, Normal pulses, Other (Bilateral LE edema) Comments/Notes: Left lower extremity swelling, tender, erythema - Results Results: Laboratory Results WBC 18.1 x10^3/uL (4.8-10.8) H 01/22/17 05:03 RBC 5.39 10^6/uL (4.70-6.10) 01/22/17 05:03 Hgb 14.9 g/dL (14.0-18.0) 01/22/17 05:03 Hct 46.4 % (42.0-52.0) 01/22/17 05:03 MCV 86.0 fL (80.0-94.0) 01/22/17 05:03 MCH 27.7 pg (27.0-31.0) 01/22/17 05:03 MCHC 32.2 g/dL (32.0-36.0) 01/22/17 05:03 RDW 15.8 % (12.0-15.0) H 01/22/17 05:03 Plt Count 119 10^3/uL (130-450) L 01/22/17 05:03 MPV 9.2 fL (7.4-11.4) 01/22/17 05:03 Neut # 15.8 10^3/uL (1.5-6.6) H 01/22/17 05:03 Lymph # 1.2 10^3/uL (1.5-3.5) L 01/22/17 05:03 [place] # 1.0 10^3/uL (0.0-1.0) 01/22/17 05:03 Eos # 0.0 10^3/uL (0.0-0.7) 01/22/17 05:03 Baso # 0.1 10^3/uL (0.0-0.1) 01/22/17 05:03 Absolute Nucleated RBC 0.00 x10^3/uL 01/22/17 05:03 Total Counted 100 01/21/17 04:49 Band Neuts % (Manual) 12 % (0-10) H 01/21/17 04:49 Reactive Lymphs % (Man) 3 % 01/21/17 04:49 Neutrophils # (Manual) 20.3 10^3/uL (1.5-6.6) H 01/21/17 04:49 Lymphocytes # (Manual) 1.1 10^3/uL (1.5-3.5) L 01/21/17 04:49 Monocytes # (Manual) 1.1 10^3/uL (0.0-1.0) H 01/21/17 04:49 Nucleated RBCs 0.0 /100WBC 01/22/17 05:03 Differential Comment MANUAL DIFFERENTIAL 01/21/17 04:49 Manual Slide Review Indicated 01/21/17 04:49 Platelet Estimate NORMAL (130-450,000) (NORMAL) 01/21/17 04:49 Platelet Morphology NORMAL APPEARANCE (NORMAL) 01/21/17 04:49 RBC Morph Micro Appear NORMAL APPEARANCE (NORMAL) 01/21/17 04:49 PT 28.8 secs (9.9-12.6) H 01/21/17 20:57 INR 2.5 (0.8-1.2) H 01/21/17 20:57 Sodium 139 mmol/L (135-145) 01/22/17 05:03 Potassium 3.7 mmol/L (3.5-5.0) 01/22/17 05:03 Chloride 109 mmol/L (101-111) 01/22/17 05:03 Carbon Dioxide 22 mmol/L (21-32) 01/22/17 05:03 Anion Gap 8.0 (6-13) 01/22/17 05:03 BUN 26 mg/dL (6-20) H 01/22/17 05:03 Creatinine 1.5 mg/dL (0.6-1.2) H 01/22/17 05:03 Estimated GFR (MDRD) 46 (>89) L 01/22/17 05:03 Glucose 96 mg/dL (70-100) 01/22/17 05:03 Lactic Acid 1.5 mmol/L (0.5-2.2) 01/21/17 20:57 Calcium 8.6 mg/dL (8.5-10.3) 01/22/17 05:03 Phosphorus 2.4 mg/dL (2.5-4.6) L 01/22/17 05:03 Magnesium 2.0 mg/dL (1.7-2.8) 01/22/17 05:03 Total Bilirubin 2.2 mg/dL (0.2-1.0) H 01/21/17 04:49 AST 29 IU/L (10-42) 01/21/17 04:49 ALT 27 IU/L (10-60) 01/21/17 04:49 Alkaline Phosphatase 65 IU/L (42-121) 01/21/17 04:49 Troponin I < 0.04 ng/mL (<0.49) 01/21/17 04:49 B-Natriuretic Peptide 389 pg/mL (5-100) H 01/21/17 04:49 Total Protein 7.1 g/dL (6.7-8.2) 01/21/17 04:49 Albumin 4.1 g/dL (3.2-5.5) 01/21/17 04:49 Globulin 3.0 g/dL (2.1-4.2) 01/21/17 04:49 Albumin/Globulin Ratio 1.4 (1.0-2.2) 01/21/17 04:49 Lipase 17 U/L (22-51) L 01/21/17 04:49 Urine Color YELLOW 01/21/17 06:09 Urine Clarity CLEAR (CLEAR) 01/21/17 06:09 Urine pH 6.0 PH (5.0-7.5) 01/21/17 06:09 Ur Specific [place] 1.015 (1.002-1.030) 01/21/17 06:09 Urine Protein 30 mg/dL (NEGATIVE) H 01/21/17 06:09 Urine Glucose (UA) NEGATIVE mg/dL (NEGATIVE) 01/21/17 06:09 Urine Ketones NEGATIVE mg/dL (NEGATIVE) 01/21/17 06:09 Urine Occult Blood NEGATIVE (NEGATIVE) 01/21/17 06:09 Urine Nitrite NEGATIVE (NEGATIVE) 01/21/17 06:09 Urine Bilirubin NEGATIVE (NEGATIVE) 01/21/17 06:09 Urine Urobilinogen 1 (NORMAL) E.U./dL (NORMAL) 01/21/17 06:09 Ur Leukocyte Esterase NEGATIVE (NEGATIVE) 01/21/17 06:09 Urine RBC None Seen /HPF (0-5) 01/21/17 06:09 Urine WBC 0-3 /HPF (0-3) 01/21/17 06:09 Ur Squamous Epith Cells NONE SEEN (<= Few) 01/21/17 06:09 Urine Bacteria None Seen /HPF (None Seen) 01/21/17 06:09 Ur Microscopic Review INDICATED 01/21/17 06:09 Urine Culture Comments NOT INDICATED 01/21/17 06:09 - Procedures Procedures: Procedures ENDOSC POLYPECTOMY OF LG INTEST (10/07/14) INJECT/INFUSE NEC (10/07/14)
[2017-01-22] MEDS ORDERED: cloNIDine 0.1 MG TABLET PO SCH (21:00)
[2017-01-22] MEDS: cloNIDine 0.1 MG TABLET PO SCH (22:49)
[2017-01-23] MEDS: SODIUM CHLORIDE 0.9% 1,000 ML IV SCH ×2 (01:38→12:43)
[2017-01-23] MEDS: cloNIDine 0.1 MG TABLET PO SCH ×3 (05:30→21:07)
[2017-01-23] MEDS: SODIUM CHLORIDE FLUSH 0.9% 10 ML SYRINGE IVP SCH ×4 (05:31→21:07)
[2017-01-23 06:12] LABS: BASOPHILS % (AUTO) 0.3 %; EOSINOPHILS % (AUTO) 0.2 %; HCT - HEMATOCRIT 46.5 % (42.0-52.0); HGB - HEMOGLOBIN 15.1 g/dL (14.0-18.0); LYMPHOCYTES # (AUTO) 1.4 10^3/uL (1.5-3.5); LYMPHOCYTES % (AUTO) 11.4 %; MEAN CORPUSCULAR HEMOGLOBIN 27.6 pg (27.0-31.0); MEAN CORPUSCULAR HGB CONC 32.4 g/dL (32.0-36.0); MEAN CORPUSCULAR VOLUME 85.2 fL (80.0-94.0); MEAN PLATELET VOLUME 9.2 fL (7.4-11.4); MONOCYTES # (AUTO) 0.8 10^3/uL (0.0-1.0); MONOCYTES % (AUTO) 6.9 %; NEUTROPHILS # (AUTO) 9.9 10^3/uL (1.5-6.6); NEUTROPHILS % (AUTO) 81.2 %; RED BLOOD COUNT 5.46 10^6/uL (4.70-6.10); UNCORRECTED WHITE BLOOD COUNT 12.2 x10^3/uL; WHITE BLOOD COUNT 12.2 x10^3/uL (4.8-10.8)
[2017-01-23 06:26] LABS: CALCIUM 8.7 mg/dL (8.5-10.3); CREATININE 1.1 mg/dL (0.6-1.2); PHOSPHORUS 2.5 mg/dL (2.5-4.6); POTASSIUM 3.6 mmol/L (3.5-5.0)
--- NOTE | 2017-01-23 07:52 | PROVIDER PROGRESS NOTE ---
Assessment/Plan - Problem List (1) CAP (community acquired pneumonia) Assessment/Plan: he appears asx. he does not have any cough or SOB. His WBC down to 12.2. Will repeat CXR today May be Cellulitis is only source of the sepsis. (2) RAUL on CPAP Assessment/Plan: He used his CPAP last [place]. He seems asx. Will continue its use during this adm. (3) Cellulitis and abscess of leg Assessment/Plan: He has edema of both legs which is chronic for years. L leg has heat and redness not in R leg. The appearance is more of stasis changes or nevi that are inflamed. He has a Group B strep in the one blood culture - Current Meds Current Meds: Current Medications Generic Name Dose Route Start Last Admin Trade Name Ayla PRN Reason Stop Dose Admin Clonidine HCl 0.2 mg 01/22/17 22:37 01/23/17 05:30 Catapres PO 0.2 mg TID MARY ANNE Administration Diltiazem HCl 360 mg 01/22/17 09:00 01/22/17 08:55 Cardizem Cd PO 360 mg DAILY MARY ANNE Administration Sodium Chloride 1,000 mls @ 100 mls/hr 01/21/17 07:00 01/23/17 01:38 Normal Saline 0.9% IV 100 mls/hr .Q10H MARY ANNE Administration Azithromycin 500 mg/ Sodium 250 mls @ 250 mls/hr 01/22/17 10:00 01/22/17 10:01 Chloride IV 250 mls/hr DAILY@1000 MARY ANNE Administration Sodium Chloride 10 ml 01/21/17 14:00 01/23/17 05:31 Normal Saline Flush 0.9% IVP 10 ml Q8HR MARY ANNE Administration Timolol Maleate 1 drops 01/21/17 09:00 01/22/17 08:58 Timoptic 0.5% Ophth Drops EACHEYE 1 drops DAILY MARY ANNE Administration Warfarin Sodium 5 mg 01/21/17 14:00 01/22/17 14:22 Coumadin PO 5 mg QDWARFARIN MARY ANNE Administration - Lab Result Fish Bone Diagrams: 01/23/17 05:43 01/23/17 05:43 - Additional Planning My Orders: My Active Orders 01/23/17 08:00 Ampicillin/Sulbactam [Unasyn] 3 gm Sodium Chloride 0.9% Minibag [Normal Saline 0.9% Minibag] 100 ml IV Q6HR Subjective - Subjective Patient Reports: Feeling Better, Resting Comfortably, No Complaints Nursing Reports: No Complaints Objective Vital Signs: Vital Signs - 24 hr 01/22/17 01/22/17 01/22/17 08:00 09:00 09:56 Temperature Heart Rate [ 97 107 H 95 Monitoring electrodes] Respiratory 27 H 28 H Rate Blood Pressure 151/96 H [Left Brachial artery] Blood Pressure [Right Brachial artery] O2 Saturation 96 95 01/22/17 01/22/17 01/22/17 10:00 10:43 11:00 Temperature Heart Rate [ 98 101 H Monitoring electrodes] Respiratory 17 Rate Blood Pressure 160/102 H 140/88 H 118/84 H [Left Brachial artery] Blood Pressure [Right Brachial artery] O2 Saturation 96 96 01/22/17 01/22/17 01/22/17 12:00 13:00 14:00 Temperature Heart Rate [ 94 96 97 Monitoring electrodes] Respiratory 31 H 25 H 27 H Rate Blood Pressure 153/103 H 150/97 H 128/68 [Left Brachial artery] Blood Pressure [Right Brachial artery] O2 Saturation 96 97 96 01/22/17 01/22/17 01/22/17 15:00 16:00 17:00 Temperature 36.2 C L Heart Rate [ 102 H 103 H 97 Monitoring electrodes] Respiratory 28 H 30 H 28 H Rate Blood Pressure 145/106 H 157/97 H 157/96 H [Left Brachial artery] Blood Pressure [Right Brachial artery] O2 Saturation 96 95 98 01/22/17 01/22/17 01/22/17 18:03 20:17 21:00 Temperature 36.4 C L 36.6 C Heart Rate [ 100 102 H 103 H Monitoring electrodes] Respiratory 26 H 31 H 21 Rate Blood Pressure 160/100 H 180/116 H 174/116 H [Left Brachial artery] Blood Pressure [Right Brachial artery] O2 Saturation 96 96 96 01/23/17 01/23/17 01/23/17 00:15 01:36 01:39 Temperature Heart Rate [ 91 81 91 Monitoring electrodes] Respiratory 18 21 25 H Rate Blood Pressure 139/99 H [Left Brachial artery] Blood Pressure 142/101 H 136/85 H [Right Brachial artery] O2 Saturation 94 95 95 01/23/17 04:48 Temperature 36.9 C Heart Rate [ 91 Monitoring electrodes] Respiratory 30 H Rate Blood Pressure [Left Brachial artery] Blood Pressure [Right Brachial artery] O2 Saturation 97 Oxygen O2 Source Patient supplied BIPAP I&O (Last 24 Hrs): Intake and Output Totals x24h 01/21/17 01/22/17 01/23/17 23:59 23:59 23:59 Intake Total 2900 4892 1000 Output Total 675 1575 300 Balance 2225 3317 700 General: Alert, Oriented x3, Cooperative HEENT: PERRLA, EOMI Neck: No JVD, No thyromegaly Neuro: Alert, Oriented Times 3 Cardiovascular: Regular rate, No murmurs Respiratory: No respiratory distress, Breath sounds nml, Wheezes Abdomen: Normal bowel sounds, Soft Extremities: No clubbing, Other (bilateral 1-2 + edema) - Results Results: Laboratory Results WBC 12.2 x10^3/uL (4.8-10.8) H 01/23/17 05:43 RBC 5.46 10^6/uL (4.70-6.10) 01/23/17 05:43 Hgb 15.1 g/dL (14.0-18.0) 01/23/17 05:43 Hct 46.5 % (42.0-52.0) 01/23/17 05:43 MCV 85.2 fL (80.0-94.0) 01/23/17 05:43 MCH 27.6 pg (27.0-31.0) 01/23/17 05:43 MCHC 32.4 g/dL (32.0-36.0) 01/23/17 05:43 RDW 16.0 % (12.0-15.0) H 01/23/17 05:43 Plt Count 137 10^3/uL (130-450) 01/23/17 05:43 MPV 9.2 fL (7.4-11.4) 01/23/17 05:43 Neut # 9.9 10^3/uL (1.5-6.6) H 01/23/17 05:43 Lymph # 1.4 10^3/uL (1.5-3.5) L 01/23/17 05:43 [place] # 0.8 10^3/uL (0.0-1.0) 01/23/17 05:43 Eos # 0.0 10^3/uL (0.0-0.7) 01/23/17 05:43 Baso # 0.0 10^3/uL (0.0-0.1) 01/23/17 05:43 Absolute Nucleated RBC 0.00 x10^3/uL 01/23/17 05:43 Total Counted 100 01/21/17 04:49 Band Neuts % (Manual) 12 % (0-10) H 01/21/17 04:49 Reactive Lymphs % (Man) 3 % 01/21/17 04:49 Neutrophils # (Manual) 20.3 10^3/uL (1.5-6.6) H 01/21/17 04:49 Lymphocytes # (Manual) 1.1 10^3/uL (1.5-3.5) L 01/21/17 04:49 Monocytes # (Manual) 1.1 10^3/uL (0.0-1.0) H 01/21/17 04:49 Nucleated RBCs 0.0 /100WBC 01/23/17 05:43 Differential Comment MANUAL DIFFERENTIAL 01/21/17 04:49 Manual Slide Review Indicated 01/21/17 04:49 Platelet Estimate NORMAL (130-450,000) (NORMAL) 01/21/17 04:49 Platelet Morphology NORMAL APPEARANCE (NORMAL) 01/21/17 04:49 RBC Morph Micro Appear NORMAL APPEARANCE (NORMAL) 01/21/17 04:49 PT 28.8 secs (9.9-12.6) H 01/21/17 20:57 INR 2.5 (0.8-1.2) H 01/21/17 20:57 Sodium 137 mmol/L (135-145) 01/23/17 05:43 Potassium 3.6 mmol/L (3.5-5.0) 01/23/17 05:43 Chloride 108 mmol/L (101-111) 01/23/17 05:43 Carbon Dioxide 22 mmol/L (21-32) 01/23/17 05:43 Anion Gap 7.0 (6-13) 01/23/17 05:43 BUN 19 mg/dL (6-20) 01/23/17 05:43 Creatinine 1.1 mg/dL (0.6-1.2) 01/23/17 05:43 Estimated GFR (MDRD) 66 (>89) L 01/23/17 05:43 Glucose 105 mg/dL (70-100) H 01/23/17 05:43 Lactic Acid 1.5 mmol/L (0.5-2.2) 01/21/17 20:57 Calcium 8.7 mg/dL (8.5-10.3) 01/23/17 05:43 Phosphorus 2.5 mg/dL (2.5-4.6) 01/23/17 05:43 Magnesium 2.0 mg/dL (1.7-2.8) 01/23/17 05:43 Total Bilirubin 2.2 mg/dL (0.2-1.0) H 01/21/17 04:49 AST 29 IU/L (10-42) 01/21/17 04:49 ALT 27 IU/L (10-60) 01/21/17 04:49 Alkaline Phosphatase 65 IU/L (42-121) 01/21/17 04:49 Troponin I < 0.04 ng/mL (<0.49) 01/21/17 04:49 B-Natriuretic Peptide 389 pg/mL (5-100) H 01/21/17 04:49 Total Protein 7.1 g/dL (6.7-8.2) 01/21/17 04:49 Albumin 4.1 g/dL (3.2-5.5) 01/21/17 04:49 Globulin 3.0 g/dL (2.1-4.2) 01/21/17 04:49 Albumin/Globulin Ratio 1.4 (1.0-2.2) 01/21/17 04:49 Lipase 17 U/L (22-51) L 01/21/17 04:49 Urine Color YELLOW 01/21/17 06:09 Urine Clarity CLEAR (CLEAR) 01/21/17 06:09 Urine pH 6.0 PH (5.0-7.5) 01/21/17 06:09 Ur Specific [place] 1.015 (1.002-1.030) 01/21/17 06:09 Urine Protein 30 mg/dL (NEGATIVE) H 01/21/17 06:09 Urine Glucose (UA) NEGATIVE mg/dL (NEGATIVE) 01/21/17 06:09 Urine Ketones NEGATIVE mg/dL (NEGATIVE) 01/21/17 06:09 Urine Occult Blood NEGATIVE (NEGATIVE) 01/21/17 06:09 Urine Nitrite NEGATIVE (NEGATIVE) 01/21/17 06:09 Urine Bilirubin NEGATIVE (NEGATIVE) 01/21/17 06:09 Urine Urobilinogen 1 (NORMAL) E.U./dL (NORMAL) 01/21/17 06:09 Ur Leukocyte Esterase NEGATIVE (NEGATIVE) 01/21/17 06:09 Urine RBC None Seen /HPF (0-5) 01/21/17 06:09 Urine WBC 0-3 /HPF (0-3) 01/21/17 06:09 Ur Squamous Epith Cells NONE SEEN (<= Few) 01/21/17 06:09 Urine Bacteria None Seen /HPF (None Seen) 01/21/17 06:09 Ur Microscopic Review INDICATED 01/21/17 06:09 Urine Culture Comments NOT INDICATED 01/21/17 06:09 - Procedures Procedures: Procedures ENDOSC POLYPECTOMY OF LG INTEST (10/07/14) INJECT/INFUSE NEC (10/07/14)
[2017-01-23] MEDS: AMPICILLIN/SULBACTAM 3 GM in SODIUM CHLORIDE 0.9% MINIBAG 100 ML IV SCH ×3 (08:21→18:48)
[2017-01-23] MEDS: diltiaZEM CD 180 MG CAPSULE PO SCH (08:21)
[2017-01-23] MEDS: TIMOLOL 0.5% OPHTH DROPS EACHEYE SCH (08:22)
[2017-01-23] MEDS: AZITHROMYCIN INJ 500 MG in SODIUM CHLORIDE 0.9% 250 ML IV SCH (10:09)
--- NOTE | 2017-01-23 12:46 | XRAY Report ---
CHEST, PA AND LATERAL: 01/23/2017 CLINICAL HISTORY: Followup pneumonia. FINDINGS: EKG electrodes noted across the chest. Normal cardiac size is seen. Thoracic aorta is no rmal. Mediastinum is not widened. Pulmonary parenchyma demonstrates less than optimal inspiratory e ffort. Minimal interstitial parenchymal disease is seen in the left lower lobe. This finding is non specific. The findings are slightly progressive as compared to preceding exam dated 01/21/2017. Asia horacio consideration is minimal atelectasis. Secondary possibility is minor bronchopneumonia. IMPRESSION: 1. NORMAL CARDIAC SIZE. 2. MINOR INTERSTITIAL PARENCHYMAL DISEASE IS SEEN IN THE LEFT LOWER LOBE. FINDINGS ARE NONSPECIFIC AND MINIMALLY PROGRESSIVE COMPARED TO PRECEDING EXAM DATED 01/21/2017. PRIMARY CONSIDERATION IS M ILD ATELECTASIS. SECONDARY POSSIBILITY IS MINIMAL PNEUMONIA. JOB #: [id number] EXT JOB #:[id number]
[2017-01-23] MEDS: WARFARIN 5 MG TABLET PO SCH (13:47)
[2017-01-24] MEDS: SODIUM CHLORIDE 0.9% 1,000 ML IV SCH (00:20)
[2017-01-24] MEDS: AMPICILLIN/SULBACTAM 3 GM in SODIUM CHLORIDE 0.9% MINIBAG 100 ML IV SCH ×2 (00:35→05:24)
[2017-01-24] MEDS: cloNIDine 0.1 MG TABLET PO SCH (05:24)
[2017-01-24] MEDS: SODIUM CHLORIDE FLUSH 0.9% 10 ML SYRINGE IVP SCH (05:32)
[2017-01-24 05:54] LABS: BASOPHILS % (AUTO) 0.3 %; EOSINOPHILS % (AUTO) 0.1 %; HCT - HEMATOCRIT 49.7 % (42.0-52.0); HGB - HEMOGLOBIN 16.1 g/dL (14.0-18.0); LYMPHOCYTES # (AUTO) 1.6 10^3/uL (1.5-3.5); LYMPHOCYTES % (AUTO) 13.4 %; MEAN CORPUSCULAR HEMOGLOBIN 27.6 pg (27.0-31.0); MEAN CORPUSCULAR HGB CONC 32.4 g/dL (32.0-36.0); MEAN CORPUSCULAR VOLUME 85.3 fL (80.0-94.0); MEAN PLATELET VOLUME 9.2 fL (7.4-11.4); MONOCYTES # (AUTO) 0.8 10^3/uL (0.0-1.0); MONOCYTES % (AUTO) 6.9 %; NEUTROPHILS # (AUTO) 9.6 10^3/uL (1.5-6.6); NEUTROPHILS % (AUTO) 79.3 %; RED BLOOD COUNT 5.83 10^6/uL (4.70-6.10); RED CELL DISTRIBUTION WIDTH 15.6 % (12.0-15.0); UNCORRECTED WHITE BLOOD COUNT 12.1 x10^3/uL; WHITE BLOOD COUNT 12.1 x10^3/uL (4.8-10.8)
[2017-01-24 06:11] LABS: PHOSPHORUS 2.5 mg/dL (2.5-4.6); POTASSIUM 3.6 mmol/L (3.5-5.0)
[2017-01-24 07:59] VITALS: BP 146/73
--- NOTE | 2017-01-24 09:16 | Discharge Plan ---
Discharge Plan Disposition: 01 Home, Self Care Condition: Good Prescriptions: Amox/Clav 875/125 [Augmentin] 1 each PO Q12H #14 tablet Diet: Regular Activity Restrictions: Activity as Tolerated Shower Restrictions: No Driving Restrictions: No Weight Bearing: Full Weight Additional Instructions or Follow Up instructions: Call Dr. Dutta for appt in one week+- ELEVATE L leg one hour twice a day for at least 5 days. Finish your antibiotics. Thank you, Dr. Shafer No Smoking: If you smoke, Please STOP! Call for help.
[2017-01-24] MEDS: diltiaZEM CD 180 MG CAPSULE PO SCH (09:47)
[2017-01-24] MEDS: TIMOLOL 0.5% OPHTH DROPS EACHEYE SCH (09:48)
[2017-01-24] MEDS: AZITHROMYCIN INJ 500 MG in SODIUM CHLORIDE 0.9% 250 ML IV SCH (09:51)
--- NOTE | 2017-01-24 10:59 | DISCHARGE SUMMARY ---
DATE OF ADMISSION: 01/21/2017 DATE OF DISCHARGE: 01/24/2017 PRIMARY CARE PHYSICIAN: Ronaldo Huntley M.D. ADMISSION DIAGNOSES 1. Severe sepsis. 2. Atrial fibrillation with rapid ventricular response. 3. Pyelonephritis. 4. Community-acquired pneumonia. 5. Hypertension. 6. Obstructive sleep apnea: On continuous positive airway pressure. DISCHARGE DIAGNOSES 1. Severe sepsis, resolved. 2. Urinary tract infection versus pyelonephritis: On antibiotics. 3. Community-acquired pneumonia: On antibiotics. 4. Atrial fibrillation with rapid ventricular response: Resolved. Now, rate controlled. 5. Hypertension: With satisfactory systolic blood pressure on medication. 6. Obstructive sleep apnea: With continuous positive airway pressure usage during the hospitalization. SPECIAL PROCEDURES The patient had an abdominopelvic CT. The findings or impression is: 1. No kidney stone or hydronephrosis. 2. Nonspecific bilateral perinephric fat stranding and nonspecific perinephritic lymphedema versus infection. 3. Status post cholecystectomy. 4. Moderate to severe descending severe sigmoid diverticulosis without diverticulitis. 5. Small bilateral fat containing inguinal hernias. 6. Subsegmental by Doppler as well as patchy left basilar airspace disease. These likely reflect a combination of atelectasis, aspiration, and/or pneumonia. CONSULTING PHYSICIANS: None. HOSPITAL COURSE AND MANAGEMENT: The initial presentation, hospital emergency evaluation, and Hospitalist plan were all described in the history and physical. See a copy of the same. In summary, the patient is a 71-year-old gentleman with a past medical history significant for atrial fibrillation on Coumadin and calcium channel divya for control, obstructive sleep apnea on CPAP, hypertension, BPH, glaucoma, history of cellulitis, and a history of prostatitis. He presented to the emergency department with a chief complaint of generalized weakness and confusion. The patient denied any cough. He had his usual chronic shortness of breath. He was evaluated in the emergency department, and he found to have a temperature of 38.2 and in atrial fibrillation with RVR. He had a white count of 22.6 and elevated lactate at 2.4. Urine was negative. A chest CT showed the findings noted previously, and he was admitted for the pyelonephritis, pneumonia, and the severe sepsis. The patient had improvement the following day. He was having less pain. He was breathing fine. RVR was controlled. On the day of discharge, he was afebrile. White count was much improved. It nearly returned to normal. PHYSICAL EXAMINATION VITAL SIGNS: On the day of discharge, vital signs were 37.0, 84, 146/73, 20, and 92% room air saturation. HEENT: The patient's eyes are EOMI and within normal limits. PERRL. Nonicteric. Mouth and throat revealed moist mucous membranes, but no other pathology in the mouth or pharynx. NECK: Supple and nontender. No lymphadenopathy, no thyromegaly, and no JVD. CHEST: The patient's chest wall is nontender. Symmetric. HEART: Irregular rhythm. Atrial fibrillation, with a 2/6 murmur at the left sternal border. No clicks or rubs. LUNGS: Clear. Good air movement bilaterally. No wheezing or rhonchi. ABDOMEN: The patient's abdomen revealed a thick abdominal wall. Soft and nontender. Bowel sounds are present. No hepatosplenomegaly is appreciated. RECTAL AND GENITAL EXAM: Not done. EXTREMITIES: He has 2+ edema in the mid-calf. There is less of the punctate erythema of the left leg. NEUROLOGIC: The patient's neurological exam revealed cognition intact. Cranial nerves are intact. Motor is intact. LABORATORY DATA: The patient's laboratory data revealed white count maximum 18.1 and is now down to 12.1, hemoglobin and hematocrit 16 and 49, and platelets 155. Sodium 139, potassium 3.6, chloride 106, CO2 21, BUN 16, creatinine 1.0, glucose 101, calcium 9.0. The patient's blood culture, 1 of 2, grew Streptococcus agalactiae (group B Streptococcus), obrien-sensitive. ALLERGIES: HE HAS NO KNOWN ALLERGIES. MEDICATIONS Home medications are: 1. Schurz-3 one b.i.d. 2. Clonidine 0.1 mg b.i.d. 3. Timolol drops 2 drops in each eye b.i.d. 4. Ibuprofen 800 every 8 hours p.r.n. 5. Omeprazole 20 mg a day. 6. Warfarin 5 mg a day. 7. Lisinopril 40 mg b.i.d. 8. Hydrochlorothiazide 25 mg a day. 9. Cardura 16 mg a day. 10. Diltiazem 360 mg a day. 11. Augmentin 875/125 b.i.d. for 1 week, #14 pills. FOLLOWUP: The patient is to follow up with Ronaldo Huntley M.D., in the next week to 10 days. The discharge issues are resolution of the cellulitis, the blood pressure control, and his pro-time level. TIME SPENT: Time spent in collaboration with Case Management and Nursing, evaluation of the patient, and education, as well as review of his plan was 35 minutes. The patient was examined on the day of discharge. JOB #: [id number] [facility] JOB #:[id number] TORIN
== END 2017-01-24 10:59 | disposition home or self-care (01) | DRG 871 ==
LOC: EDUNIT# → ED 04:34 → ICU 06:49 → MS 01-23 11:19
PROVIDERS: ADMIT Internal Medicine; ATTEND Internal Medicine
DX: A41.9 Sepsis, unspecified organism (principal); A40.1 Sepsis due to streptococcus, group B; J18.9 Pneumonia, unspecified organism; E78.5 Hyperlipidemia, unspecified; N39.0 Urinary tract infection, site not specified; G47.30 Sleep apnea, unspecified; K21.9 Gastro-esophageal reflux disease without esophagitis; N12 Tubulo-interstitial nephritis, not specified as acute or chronic; Z79.2 Long term (current) use of antibiotics; L03.116 Cellulitis of left lower limb; R65.20 Severe sepsis without septic shock; I48.91 Unspecified atrial fibrillation; E87.6 Hypokalemia; I10 Essential (primary) hypertension; G47.33 Obstructive sleep apnea (adult) (pediatric); H40.9 Unspecified glaucoma; N40.0 Benign prostatic hyperplasia without lower urinary tract symptoms; Z79.01 Long term (current) use of anticoagulants; Z79.899 Other long term (current) drug therapy
CPT/HCPCS: 36415; 71010; 71020; 74176; 80048; 80053; 81001; 81003; 83605; 83690; 83735; 83880; 84100; 84484; 85025; 85610; 87040; 87086; 87640; 93005; 93306; 96361; 96374; 96375; 96376; 99284; 99285; 99291

== ENCOUNTER 2017-01-29 12:40 | Outpatient (CLI) | payer MEDICARE ==
[2017-01-29] MEDS ORDERED: IOPAMIDOL-300 100 ML VIAL IVP ONE (13:33)
--- NOTE | 2017-01-29 15:15 | CT Report ---
CT ANGIOGRAM OF CHEST: 01/29/2017 CLINICAL INDICATION: Hemoptysis, cough. TECHNIQUE: Axial CT images of the chest were obtained with 80 mL of Isovue-300 intravenously, in pulm onary arterial phase of enhancement. COMPARISON: 07/12/2013. FINDINGS: The heart and great vessels are unremarkable. No hilar or mediastinal lymphadenopathy is p resent. The pulmonary arteries demonstrate normal enhancement. No pulmonary embolus is seen. The lung s demonstrate bilateral patchy infiltrates and small effusions. No suspicious pulmonary nodule or mas s lesion is appreciated. No pneumothorax. Limited evaluation of upper abdominal structures demonstrat es normal adrenal glands. IMPRESSION: PATCHY BILATERAL INFILTRATES AND SMALL EFFUSIONS. NO EVIDENCE OF PULMONARY EMBOLUS. In accordance with CT protocol optimization, one or more of the following dose reduction techniques w ere utilized for this exam: automated exposure control, adjustment of mA and/or KV based on patient size, or use of iterative reconstructive technique. JOB #: [id number] EXT JOB #:[id number]
== END 2017-01-29 12:41 | disposition home or self-care (01) ==
LOC: DI 12:40
PROVIDERS: ATTEND Internal Medicine
DX: R91.8 Other nonspecific abnormal finding of lung field (principal); J90 Pleural effusion, not elsewhere classified
CPT/HCPCS: 71275; Q9967

== ENCOUNTER 2017-04-25 14:48 | Outpatient (CLI) | payer MEDICARE | END 2017-04-25 14:49 | disposition home or self-care (01) | LOC: SC 14:48 | PROVIDERS: ATTEND Nurse Practitioner Family | DX: G47.33 Obstructive sleep apnea (adult) (pediatric) (principal) | CPT/HCPCS: 99214; G0463; 99212 ==

== ENCOUNTER 2017-11-23 10:35 | Emergency (ER) | payer MEDICARE ==
--- NOTE | 2017-11-23 11:05 | ED Physician Documentation ---
History of Present Illness - Stated complaint Stated Complaint: R FOOT SWOLLEN/BRUISE - Chief complaint Chief Complaint: Ext Problem - History obtained from History obtained from: Patient - History of Present Illness Timing: How many weeks ago (2) Pain level max: 2 Pain level now: 2 Improved by: nothing Worsened by: nothing - Additonal information Additional information: Patient is a 72-year-old male who presents to the emergency department the right lower extremity swelling 2 weeks. He is on warfarin for atrial fibrillation. Was recently treated with antibiotics for a sinus infection. States stopped his antibiotics approximately 2 weeks ago. Has had swelling of the right lower extremity and foot since that time. Does not recall any injury. Only has mild discomfort. Nothing seems to improve his symptoms. Nothing seems to worsen them. Has not seen his doctor as his primary care provider is been on vacation. Review of Systems Ten Systems: 10 systems reviewed and negative Constitutional: denies: Fever, Chills Nose: denies: Rhinorrhea / runny nose, Congestion Throat: denies: Sore throat Respiratory: denies: Cough GI: denies: Nausea, Vomiting, Diarrhea Skin: denies: Rash Musculoskeletal: denies: Neck pain, Back pain Neurologic: denies: Headache PD PAST MEDICAL HISTORY - Past Medical History Past Medical History: Yes Cardiovascular: Hypertension, Atrial fibrillation Respiratory: Sleep apnea, CPAP use Endocrine/Autoimmune: None GI: GERD : None HEENT: Other Psych: None Musculoskeletal: None Derm: None - Past Surgical History Past Surgical History: Yes General: Cholecystectomy, Colonoscopy, EGD - Present Medications Home Medications: Ambulatory Orders Medication Instructions Recorded Confirmed Diltiazem HCl [Cartia Xt] 360 mg PO DAILY 02/26/13 01/21/17 Hydrochlorothiazide 25 mg PO DAILY 02/26/13 01/21/17 Lisinopril [Zestril] 40 mg PO BID 02/26/13 01/21/17 Doxazosin [Cardura] 16 mg PO DAILY 07/04/13 01/21/17 Timolol 0.5% Ophth Drops [Timoptic 2 drops EACHEYE BID 07/04/13 01/21/17 0.5% Ophth Drops] Warfarin Sodium 5 mg PO DAILY 10/06/14 01/21/17 Ibuprofen [Motrin] 800 mg PO Q8H PRN 01/21/17 01/21/17 [place]-3/Dha/Epa/Fish Oil [[place]-3 1 each PO BID 01/21/17 01/21/17 Fish Oil EC 1,000 mg] Omeprazole [PriLOSEC] 20 mg PO DAILY 01/21/17 01/21/17 cloNIDine [Catapres] 0.1 mg PO BID 01/21/17 01/21/17 Amox/Clav 875/125 [Augmentin] 1 each PO Q12H #14 tablet 01/24/17 - Allergies Allergies/Adverse Reactions: Allergies Allergy/AdvReac Type Severity Reaction Status Date / Time No Known Drug Allergies Allergy Verified 01/21/17 04:51 - Social History Does the pt smoke?: No Smoking Status: Never smoker Does the pt drink ETOH?: Yes Does the pt have substance abuse?: No - Immunizations Immunizations are current?: No - POLST Patient has POLST: No POLST Status: Full Code PD ED PE NORMAL - Vitals Vital signs reviewed: Yes - General General: Alert and oriented X 3, No acute distress - HEENT HEENT: Moist mucous membranes - Neck Neck: Supple, no meningeal sign - Cardiac Cardiac: RRR - Respiratory Respiratory: No respiratory distress, Clear bilaterally - Abdomen Abdomen: Soft, Non tender, Non distended - Derm Derm: Warm and dry - Extremities Extremities: Other (moderate swelling from mid calf to the toes of the R foot. Moderate swelling to the L foot as well. B pitting edema. Mild warmth. no erythema. ) - Neuro Neuro: Alert and oriented X 3 - Psych Psych: Normal mood Results - Vitals Vitals: Vital Signs - 24 hr 11/23/17 10:39 Temperature 36.0 C L Heart Rate 82 Respiratory 18 Rate Blood Pressure 156/107 H O2 Saturation 98 Oxygen O2 Source Room air - Labs Labs: Laboratory Tests 11/23/17 11/23/17 11/23/17 11:17 11:17 11:17 WBC 7.6 RBC 6.23 H Hgb 17.5 Hct 52.5 H MCV 84.3 MCH 28.1 MCHC 33.4 RDW 15.5 H Plt Count 178 MPV 8.4 Neut # 4.6 Lymph # 1.9 [place] # 0.8 Eos # 0.2 Baso # 0.1 Absolute Nucleated RBC 0.00 Nucleated RBC % 0.0 ESR 1 PT INR Sodium 142 Potassium 3.6 Chloride 106 Carbon Dioxide 26 Anion Gap 10.0 BUN 17 Creatinine 1.2 Estimated GFR (MDRD) 60 L Glucose 95 Calcium 9.5 Total Bilirubin 1.1 H AST 28 ALT 29 Alkaline Phosphatase 85 C-Reactive Protein < 1.0 Total Protein 7.7 Albumin 4.2 Globulin 3.5 Albumin/Globulin Ratio 1.2 Lipase 24 11/23/17 11:17 WBC RBC Hgb Hct MCV MCH MCHC RDW Plt Count MPV Neut # Lymph # [place] # Eos # Baso # Absolute Nucleated RBC Nucleated RBC % ESR PT 28.3 H INR 2.6 H Sodium Potassium Chloride Carbon Dioxide Anion Gap BUN Creatinine Estimated GFR (MDRD) Glucose Calcium Total Bilirubin AST ALT Alkaline Phosphatase C-Reactive Protein Total Protein Albumin Globulin Albumin/Globulin Ratio Lipase - Rads (name of study) duplex US RLE Radiology: Prelim report reviewed, EMP read contemporaneously, See rad report ( no DVT) PD MEDICAL DECISION MAKING - ED course Complexity details: reviewed results, re-evaluated patient, considered differential, d/w patient, d/w family ED course: Patient is a 72-year-old male who presents to the emergency department with bilateral lower extremity swelling, right greater than left. No DVT. No evidence of cellulitis. Negative CRP, sed rate and normal white count. Clinically does not appear consistent with cellulitis. Clinically appears to be a peripheral edema. He states that he used to use compression socks which helped, recommend he restart this and follow-up with his doctor. No shortness of breath. Patient and family counseled regarding signs and symptoms for which I believe and urgent re-evaluation would be necessary. Patient with good understanding of and agreement to plan and is comfortable going home at this time This document was made in part using voice recognition software. While efforts are made to proofread this document, sound alike and grammatical errors may occur. Departure - Departure Disposition: 01 Home, Self Care Clinical Impression: Peripheral edema Condition: Good Instructions: ED Edema Legs Bilateral Follow-Up: Ana Dutta MD [Primary Care Provider] - Within 1 week Comments: Return if you worsen. Elevate the legs as much as possible to help with the swelling. compression socks will help as well.
[2017-11-23 11:27] LABS: BASOPHILS # (AUTO) 0.1 10^3/uL (0.0-0.1); BASOPHILS % (AUTO) 0.9 %; EOSINOPHILS # (AUTO) 0.2 10^3/uL (0.0-0.7); EOSINOPHILS % (AUTO) 2.9 %; HGB - HEMOGLOBIN 17.5 g/dL (14.0-18.0); LYMPHOCYTES # (AUTO) 1.9 10^3/uL (1.5-3.5); LYMPHOCYTES % (AUTO) 24.9 %; MEAN CORPUSCULAR HEMOGLOBIN 28.1 pg (27.0-31.0); MEAN CORPUSCULAR HGB CONC 33.4 g/dL (32.0-36.0); MEAN CORPUSCULAR VOLUME 84.3 fL (80.0-94.0); MEAN PLATELET VOLUME 8.4 fL (7.4-11.4); MONOCYTES # (AUTO) 0.8 10^3/uL (0.0-1.0); MONOCYTES % (AUTO) 10.3 %; NEUTROPHILS # (AUTO) 4.6 10^3/uL (1.5-6.6); PLT - PLATELET COUNT 178 10^3/uL (130-450); RED BLOOD COUNT 6.23 10^6/uL (4.70-6.10); RED CELL DISTRIBUTION WIDTH 15.5 % (12.0-15.0); WHITE BLOOD COUNT 7.6 x10^3/uL (4.8-10.8)
[2017-11-23 11:34] LABS: INR 2.6 (0.8-1.2); PT - PROTHROMBIN TIME 28.3 secs (9.9-12.6)
[2017-11-23 11:43] LABS: ALBUMIN 4.2 g/dL (3.2-5.5); ALBUMIN/GLOBULIN RATIO 1.2 (1.0-2.2); ALKALINE PHOSPHATASE 85 IU/L (42-121); ALT ALANINE AMINOTRANSFERASE 29 IU/L (10-60); AST ASPARTATE AMINOTRANSFERASE 28 IU/L (10-42); BILIRUBIN,TOTAL 1.1 mg/dL (0.2-1.0); BUN - BLOOD UREA NITROGEN 17 mg/dL (6-20); CALCIUM 9.5 mg/dL (8.5-10.3); CARBON DIOXIDE - CO2 26 mmol/L (21-32); CHLORIDE 106 mmol/L (101-111); CREATININE 1.2 mg/dL (0.6-1.2); GFR - MDRD 60 (>89); GLUCOSE 95 mg/dL (70-100); LIPASE 24 U/L (22-51); SODIUM 142 mmol/L (135-145); TOTAL PROTEIN 7.7 g/dL (6.7-8.2)
[2017-11-23 12:06] LABS: CRP - C-REACTIVE PROTEIN < 1.0 mg/dL (0-1.0)
[2017-11-23 12:57] VITALS: BP 158/111
--- NOTE | 2017-11-23 15:25 | Ultrasound Report ---
RIGHT VENOUS DUPLEX: 11/23/2017 CLINICAL INDICATION: Swelling. TECHNIQUE: Real-time sonographic vascular imaging was performed by the continuity director through the right utilizing both color flow and Doppler spectral analysis. Multiple assisted sales representative static images were saved for review. FINDINGS: A right lower extremity venous sonogram is performed revealing the common femoral, superficial femoral, profunda femoris, and popliteal veins to be adequately visualized without intraluminal defects. There is normal venous compression, augmentation, phasicity, and spontaneity of venous flow. In the calf, the visualized more cephalad portions of posterior tibial and peroneal veins are grossly compressible, without filling defects. IMPRESSION: NO EVIDENCE OF DEEP VENOUS THROMBOSIS. TD: 11/23/2017 11:46
== END 2017-11-23 13:00 | disposition home or self-care (01) ==
LOC: ED 10:35
DX: R60.0 Localized edema (principal); I10 Essential (primary) hypertension; I48.91 Unspecified atrial fibrillation; Z79.01 Long term (current) use of anticoagulants
CPT/HCPCS: 36415; 80053; 83690; 85025; 85610; 85651; 86140; 99283

== ENCOUNTER 2017-12-13 18:52 | Emergency (ER) | payer MEDICARE ==
[2017-12-13] MEDS ORDERED: MORPHINE 10 MG/ML VIAL IVP STA ×2 (19:16→21:33)
--- NOTE | 2017-12-13 19:18 | ED Physician Documentation ---
PD HPI ABD PAIN - Stated complaint Stated Complaint: LLQ PX - Chief complaint Chief Complaint: Abd Pain - History obtained from History obtained from: Patient, Family () - History of Present Illness Timing - onset: Last night (72-year-old gentleman with history of atrial fibrillation on warfarin, also note made of history of diverticula per a CT done previously on the chart but no history of diverticulitis. He developed intermittent spasm-like left lower quadrant pain since yesterday with slight constipation and his thinks he is febrile although this is not been measured. He denies nausea or urinary complaints.) Review of Systems Ten Systems: 10 systems reviewed and negative Constitutional: reports: Chills. denies: Fever Cardiac: denies: Chest pain / pressure, Palpitations Respiratory: denies: Dyspnea, Cough GI: reports: Abdominal Pain, Constipation. denies: Nausea, Vomiting, Diarrhea, Hematemesis, Bloody / black stool PD PAST MEDICAL HISTORY - Past Medical History Cardiovascular: Hypertension, Atrial fibrillation Respiratory: Sleep apnea, CPAP use Endocrine/Autoimmune: None GI: GERD : None HEENT: Other Psych: None Musculoskeletal: None Derm: None - Past Surgical History Past Surgical History: Yes General: Cholecystectomy, Colonoscopy, EGD - Present Medications Home Medications: Ambulatory Orders Medication Instructions Recorded Confirmed Diltiazem HCl [Cartia Xt] 360 mg PO DAILY 02/26/13 01/21/17 Hydrochlorothiazide 25 mg PO DAILY 02/26/13 01/21/17 Lisinopril [Zestril] 40 mg PO BID 02/26/13 01/21/17 Doxazosin [Cardura] 16 mg PO DAILY 07/04/13 01/21/17 Timolol 0.5% Ophth Drops [Timoptic 2 drops EACHEYE BID 07/04/13 01/21/17 0.5% Ophth Drops] Warfarin Sodium 5 mg PO DAILY 10/06/14 01/21/17 Ibuprofen [Motrin] 800 mg PO Q8H PRN 01/21/17 01/21/17 [place]-3/Dha/Epa/Fish Oil [[place]-3 1 each PO BID 01/21/17 01/21/17 Fish Oil EC 1,000 mg] Omeprazole [PriLOSEC] 20 mg PO DAILY 01/21/17 01/21/17 cloNIDine [Catapres] 0.1 mg PO BID 01/21/17 01/21/17 Amox/Clav 875/125 [Augmentin] 1 each PO Q12H #14 tablet 01/24/17 Ciprofloxacin HCl [Cipro] 500 mg PO BID #20 tablet 12/13/17 Metronidazole [Flagyl] 500 mg PO TID #30 tablet 12/13/17 Oxycodone HCl/Acetaminophen 1 - 2 tab PO Q4H PRN #15 tablet 12/13/17 [Percocet 5-325 mg Tablet] - Allergies Allergies/Adverse Reactions: Allergies Allergy/AdvReac Type Severity Reaction Status Date / Time No Known Drug Allergies Allergy Verified 01/21/17 04:51 - Social History Does the pt smoke?: No Smoking Status: Never smoker Does the pt drink ETOH?: Yes Does the pt have substance abuse?: No - Family History Family history: reports: Non contributory - Immunizations Immunizations are current?: No - POLST Patient has POLST: No POLST Status: Full Code PD ED PE NORMAL - Vitals Vital signs reviewed: Yes - General General: Alert and oriented X 3, No acute distress - HEENT HEENT: PERRL, EOMI - Neck Neck: Supple, no meningeal sign, No bony TTP - Cardiac Cardiac: Other (Irregularly irregular without murmur) - Respiratory Respiratory: No respiratory distress, Clear bilaterally - Abdomen Abdomen: Other (Pretty tender in the left lower quadrant with mild guarding and rebound tenderness, not a surgical belly though.) - Back Back: No CVA TTP, No spinal TTP - Derm Derm: Normal color, Warm and dry - Extremities Extremities: Other (He has asymmetric edema of the legs, right greater than left , no tenderness, bounding pedal pulses.) - Neuro Neuro: Alert and oriented X 3, Normal speech Results - Vitals Vitals: Vital Signs - 24 hr 12/13/17 12/13/17 18:59 21:42 Temperature 37.2 C Heart Rate 85 82 Respiratory 16 18 Rate Blood Pressure 176/111 H 156/110 H O2 Saturation 97 98 Oxygen O2 Source Room air - Labs Labs: Laboratory Tests 12/13/17 12/13/17 12/13/17 20:01 20:01 20:01 WBC 12.5 H RBC 6.06 Hgb 17.0 Hct 52.2 H MCV 86.1 MCH 28.0 MCHC 32.5 RDW 15.6 H Plt Count 195 MPV 8.5 Neut # (Auto) 9.7 H Lymph # (Auto) 1.4 L [place] # (Auto) 1.3 H Eos # (Auto) 0.1 Baso # (Auto) 0.1 Absolute Nucleated RBC 0.00 Nucleated RBC % 0.0 PT 36.3 H INR 3.4 H Sodium 140 Potassium 3.6 Chloride 107 Carbon Dioxide 24 Anion Gap 9.0 BUN 16 Creatinine 1.2 Estimated GFR (MDRD) 60 L Glucose 112 H Lactic Acid Calcium 9.2 Total Bilirubin 1.6 H AST 24 ALT 29 Alkaline Phosphatase 82 Total Protein 7.4 Albumin 3.7 Globulin 3.7 Albumin/Globulin Ratio 1.0 Lipase 27 Urine Color Urine Clarity Urine pH Ur Specific [place] Urine Protein Urine Glucose (UA) Urine Ketones Urine Occult Blood Urine Nitrite Urine Bilirubin Urine Urobilinogen Ur Leukocyte Esterase Urine RBC Urine WBC Ur Squamous Epith Cells Urine Bacteria Urine Casts Ur Microscopic Review Urine Culture Comments 12/13/17 12/13/17 20:01 20:20 WBC RBC Hgb Hct MCV MCH MCHC RDW Plt Count MPV Neut # (Auto) Lymph # (Auto) [place] # (Auto) Eos # (Auto) Baso # (Auto) Absolute Nucleated RBC Nucleated RBC % PT INR Sodium Potassium Chloride Carbon Dioxide Anion Gap BUN Creatinine Estimated GFR (MDRD) Glucose Lactic Acid 1.2 Calcium Total Bilirubin AST ALT Alkaline Phosphatase Total Protein Albumin Globulin Albumin/Globulin Ratio Lipase Urine Color YELLOW Urine Clarity CLEAR Urine pH 6.0 Ur Specific [place] 1.020 Urine Protein 30 H Urine Glucose (UA) NEGATIVE Urine Ketones NEGATIVE Urine Occult Blood NEGATIVE Urine Nitrite NEGATIVE Urine Bilirubin NEGATIVE Urine Urobilinogen 0.2 (NORMAL) Ur Leukocyte Esterase NEGATIVE Urine RBC None Seen Urine WBC 0-3 Ur Squamous Epith Cells NONE SEEN Urine Bacteria None Seen Urine Casts 0-2 Hyaline Casts Ur Microscopic Review INDICATED Urine Culture Comments NOT INDICATED - Rads (name of study) CT A?P Radiology: EMP read contemporaneously (Mild cardiomegaly and chronic lung disease, uncomplicated colitis consistent with diverticulitis.) PD MEDICAL DECISION MAKING - ED course ED course: 72-year-old gentleman presents with what is clinically felt to be uncomplicated diverticulitis and there is no evidence of complication on CT. He has a modest leukocytosis. He is tolerating oral fluids in the department and his pain was controlled with pain medications. He was started on ciprofloxacin and Flagyl and he does have a slightly supratherapeutic INR and an approach for this was discussed with him and his . - Sepsis Event Vital Signs: Vital Signs - 24 hr 12/13/17 12/13/17 18:59 21:42 Temperature 37.2 C Heart Rate 85 82 Respiratory 16 18 Rate Blood Pressure 176/111 H 156/110 H O2 Saturation 97 98 Oxygen O2 Source Room air Departure - Departure Disposition: 01 Home, Self Care Clinical Impression: Diverticulitis, Supratherapeutic INR Condition: Good Record reviewed to determine appropriate education?: Yes Instructions: ED Diverticulitis Prescriptions: Ciprofloxacin HCl [Cipro] 500 mg PO BID #20 tablet Metronidazole [Flagyl] 500 mg PO TID #30 tablet Oxycodone HCl/Acetaminophen [Percocet 5-325 mg Tablet] 1 - 2 tab PO Q4H PRN #15 tablet PRN Reason: Pain Comments: Skip your warfarin tonight. Take only half a dose tomorrow through Sunday and have your INR rechecked on Sunday. Follow-up with Dr. Dutta tomorrow. Return if worsening. Do not drink or drive while taking narcotic pain medication. Note that many narcotic pain relievers also contain Tylenol/acetaminophen. Please ensure that your total dose of acetaminophen from all sources does not exceed 3 g (3000 mg) per day. You may get constipated while on this medication. Take a stool softener such as Colace twice a day while you are on it. Also add an [id number] laxative such as senna or MiraLAX on any day that you do not have a bowel movement. If you received a narcotic pain medication or sedative while in the emergency department, do not drive for the next 24 hours. Discharge Date/Time: 12/13/17 21:54
[2017-12-13] MEDS ORDERED: IOPAMIDOL-300 100 ML VIAL ONE (19:41)
[2017-12-13 20:07] LABS: BASOPHILS # (AUTO) 0.1 10^3/uL (0.0-0.1); BASOPHILS % (AUTO) 0.5 %; EOSINOPHILS # (AUTO) 0.1 10^3/uL (0.0-0.7); EOSINOPHILS % (AUTO) 0.6 %; LYMPHOCYTES # (AUTO) 1.4 10^3/uL (1.5-3.5); LYMPHOCYTES % (AUTO) 11.1 %; MEAN CORPUSCULAR HGB CONC 32.5 g/dL (32.0-36.0); MEAN CORPUSCULAR VOLUME 86.1 fL (80.0-94.0); MEAN PLATELET VOLUME 8.5 fL (7.4-11.4); MONOCYTES # (AUTO) 1.3 10^3/uL (0.0-1.0); MONOCYTES % (AUTO) 10.4 %; NEUTROPHILS # (AUTO) 9.7 10^3/uL (1.5-6.6); NEUTROPHILS % (AUTO) 77.4 %; PLT - PLATELET COUNT 195 10^3/uL (130-450); RED BLOOD COUNT 6.06 10^6/uL (4.70-6.10); RED CELL DISTRIBUTION WIDTH 15.6 % (12.0-15.0); WHITE BLOOD COUNT 12.5 x10^3/uL (4.8-10.8)
[2017-12-13 20:12] LABS: INR 3.4 (0.8-1.2); PT - PROTHROMBIN TIME 36.3 secs (9.9-12.6)
[2017-12-13 20:22] LABS: ALBUMIN 3.7 g/dL (3.2-5.5); BILIRUBIN,TOTAL 1.6 mg/dL (0.2-1.0); CALCIUM 9.2 mg/dL (8.5-10.3); CREATININE 1.2 mg/dL (0.6-1.2); TOTAL PROTEIN 7.4 g/dL (6.7-8.2)
[2017-12-13 20:37] LABS: BILIRUBIN,URINE NEGATIVE (NEGATIVE); GLUCOSE, URINE (UA) NEGATIVE (NEGATIVE); KETONES,URINE (UA) NEGATIVE (NEGATIVE); LEUKOCYTE ESTERASE, URINE NEGATIVE (NEGATIVE); NITRITE,URINE NEGATIVE (NEGATIVE); OCCULT BLOOD,URINE NEGATIVE (NEGATIVE); PROTEIN,URINE 30 mg/dL (NEGATIVE); UROBILINOGEN,URINE 0.2 (NORMAL) E.U./dL (NORMAL)
[2017-12-13 20:42] LABS: CLARITY,URINE CLEAR (CLEAR)
[2017-12-13 20:49] LABS: BACTERIA,URINE None Seen /HPF (None Seen); CASTS, URINE 0-2 Hyaline Casts /LPF; RBC,URINE None Seen /HPF (0-5); SQUAMOUS EPITHELIAL CELL,UR NONE SEEN (<= Few)
[2017-12-13] MEDS ORDERED: IOPAMIDOL-300 100 ML VIAL IVP ONE (20:55)
--- NOTE | 2017-12-13 21:14 | CT Preliminary Report ---
Exam: CT ABDOMEN/PELVIS W/ IMPRESSION: 1. Mild cardiomegaly. 2. Chronic lung disease. 3. Abnormal mid-third sigmoid colon consistent with diverticulitis without evidence of perforation or abscess. Full differential would include colitis, pseudomembranous clot is, ischemia, inflammatory b owel disease, as well as nonobstructing malignancy. [facility] SITE ID: [id number]
--- NOTE | 2017-12-13 21:22 | CT Report ---
EXAM: CT ABDOMEN AND PELVIS. EXAM DATE: 12/13/2017 08:40 PM. CLINICAL HISTORY: Increasing left lower quadrant pain since yesterday. Constipation. COMPARISONS: 01/21/2017. TECHNIQUE: Routine helical CT imaging was performed through the abdomen and pelvis. IV contrast: 100 ml ISOVUE 300. Enteric contrast: No. Reconstructions: Coronal and sagittal. In accordance with CT protocol optimization, one or more of the following dose reduction techniques w ere utilized for this exam: automated exposure control, adjustment of mA and/or KV based on patient s ize, or use of iterative reconstructive technique. FINDINGS: Lung Bases: Mild cardiomegaly. Emphysematous changes. Marked posterior basilar pleural-parenchymal scarring. No acute infiltrate. Liver: Normal. No masses. Gallbladder/Bile Ducts: Cholecystectomy. No biliary duct dilatation. Spleen: Normal. Pancreas: Normal. Adrenal Glands: Normal. Kidneys: Normal. Several stable 4 cm and smaller renal cysts bilaterally. No solid masses or hydronep hrosis. Peritoneal Cavity/Bowel: No free air. Interval development of marked amount of wall thickening, numerous inflamed diverticula, and a small amount of adjacent linear fluid involving the mid-third sigmoid colon, 7 cm in length (70/3). Large and small bowel of normal caliber. No adenopathy. The appendix is well visualized and normal. Pelvic Organs: Normal. The bladder and visualized pelvic organs are within normal limits. Vasculature: No aneurysms or other significant abnormality. Bones: No significant abnormality. Other: None. IMPRESSION: 1. Mild cardiomegaly. 2. Chronic lung disease. 3. Abnormal mid-third sigmoid colon consistent with diverticulitis without evidence of perforation or abscess. Full differential would include colitis, pseudomembranous colitis, ischemia, inflammatory b owel disease, as well as nonobstructing malignancy. [facility] Referring Provider Line: [phone] SITE ID: [id number]
[2017-12-13] MEDS ORDERED: metroNIDAZOLE 250 MG TABLET PO STA (21:28)
[2017-12-13] MEDS ORDERED: CIPROFLOXACIN 250 MG TABLET PO STA (21:28)
[2017-12-13] MEDS ORDERED: oxyCODONE/ACET 5/325 Prepack 4 PO STA (21:28)
[2017-12-13] MEDS ORDERED: DICYCLOMINE 10 MG CAPSULE PO STA (21:29)
[2017-12-13 21:43] VITALS: BP 156/110
== END 2017-12-13 21:54 | disposition home or self-care (01) ==
LOC: ED 18:52
DX: K57.32 Diverticulitis of large intestine without perforation or abscess without bleeding (principal); R79.1 Abnormal coagulation profile; I10 Essential (primary) hypertension; Z79.01 Long term (current) use of anticoagulants
CPT/HCPCS: 36415; 74177; 80053; 81001; 83605; 83690; 85025; 85610; 96374; 96376; 99283; 99284; A9270; Q9967; 81003; 87086

== ENCOUNTER 2018-01-31 08:40 | Day surgery (SDC) | payer MEDICARE ==
--- NOTE | 2018-01-31 09:08 | ANESTHESIA ---
Pre-Anesthesia VS, & Labs - Diagnosis Diverticulitis/Abnormal CT Colon - Procedure Colonoscopy Vital Signs: See Note Height 5 ft 9 in Body Mass Index 36.1 - NPO >8 hours - Is Patient ?: No Home Medications and Allergies Home Medications: Ambulatory Orders Medication Instructions Recorded Confirmed Diltiazem HCl [Cartia Xt] 360 mg PO DAILY 02/26/13 01/31/18 Lisinopril [Zestril] 40 mg PO BID 02/26/13 01/31/18 Doxazosin [Cardura] 16 mg PO DAILY PM 07/04/13 01/31/18 Timolol 0.5% Ophth Drops [Timoptic 2 drops EACHEYE BID 07/04/13 01/31/18 0.5% Ophth Drops] Warfarin Sodium 5 mg PO .QWEDN10/06/14 01/31/18 cloNIDine [Catapres] 0.1 mg PO BID 01/21/17 01/31/18 Furosemide 20 mg PO DAILY 01/30/18 01/31/18 Warfarin Sodium 2.5 mg PO .DAILY EXECPT Sun01/30/18 01/31/18 Allergies/Adverse Reactions: Allergies Allergy/AdvReac Type Severity Reaction Status Date / Time No Known Drug Allergies Allergy Verified 01/30/18 11:21 Anes History & Medical History - Anesthetic History Anesthesia Complications: reports: No previous complications Family history of Anesthesia Complications: Denies Family history of Malignant Hyperthermia: Denies - Airway/Dental Dental: WNL Neck Mobility: Normal Mallampati classification: II Thyromental Distance: 4-6 cm - Medical History Cardiovascular: reports: Hypertension, Atrial fibrillation Pulmonary: reports: Sleep apnea, CPAP use Gastrointestinal: reports: GERD, Colon polyps, Hemorrhoids, Diverticulitis, Other Urinary: reports: None Musculoskeletal: reports: Gout Endocrine/Autoimmune: reports: None Skin: reports: None Smoking Status: Never smoker - Surgical History General: Cholecystectomy, Colonoscopy, EGD Plan Anesthesia Type: MAC Consent for Operative Procedure(s) Verified and Reviewed: Yes Code Status: Attempt Resuscitation ASA classification: 3-Severe systemic disease (please see written record) Is this case an emergency?: No
[2018-01-31] MEDS ORDERED: LACTATED RINGERS 1,000 ML IV ONE (09:21)
[2018-01-31] MEDS ORDERED: LABETALOL 5 MG/1 ML 20 ML MDV ONE ×2 (09:41→10:06)
[2018-01-31] MEDS ORDERED: PROPOFOL 200 MG/20 ML VIAL IVP ONE (12:10)
[2018-01-31] MEDS ORDERED: LIDOCAINE-MPF 2% 5 ML VIAL IM ONE (12:10)
[2018-01-31 12:33] VITALS: BP 144/86
== END 2018-01-31 08:41 | disposition home or self-care (01) ==
LOC: SDS 08:40
PROVIDERS: ATTEND Internal Medicine Gastroenterology
PROC: 0DBL8ZZ Excision of Transverse Colon, Via Natural or Artificial Opening Endoscopic (ICD-10-PCS; 2018-01-31)
PROC: 0DBK8ZZ Excision of Ascending Colon, Via Natural or Artificial Opening Endoscopic (ICD-10-PCS; 2018-01-31)
PROC: 0DBL8ZZ Excision of Transverse Colon, Via Natural or Artificial Opening Endoscopic (ICD-10-PCS; 2018-01-31)
PROC: 0DBP8ZZ Excision of Rectum, Via Natural or Artificial Opening Endoscopic (ICD-10-PCS; principal; 2018-01-31 10:00)
DX: K57.92 Diverticulitis of intestine, part unspecified, without perforation or abscess without bleeding (principal); D12.2 Benign neoplasm of ascending colon; D12.3 Benign neoplasm of transverse colon; K62.1 Rectal polyp; I10 Essential (primary) hypertension; I48.91 Unspecified atrial fibrillation; E66.9 Obesity, unspecified; Z68.35 Body mass index [BMI] 35.0-35.9, adult; G47.30 Sleep apnea, unspecified
CPT/HCPCS: 45384; 45385; 85610; J7120

== ENCOUNTER 2018-12-24 16:16 | Outpatient (CLI) | payer MEDICARE ==
[2018-12-24 16:46] LABS: BASOPHILS # (AUTO) 0.1 10^3/uL (0.0-0.1); BASOPHILS % (AUTO) 0.7 %; EOSINOPHILS # (AUTO) 0.1 10^3/uL (0.0-0.7); EOSINOPHILS % (AUTO) 1.4 %; HGB - HEMOGLOBIN 18.5 g/dL (14.0-18.0); LYMPHOCYTES # (AUTO) 2.1 10^3/uL (1.5-3.5); MEAN CORPUSCULAR HEMOGLOBIN 27.6 pg (27.0-31.0); MEAN CORPUSCULAR HGB CONC 31.6 g/dL (32.0-36.0); MEAN CORPUSCULAR VOLUME 87.2 fL (80.0-94.0); MEAN PLATELET VOLUME 10.8 fL (7.4-11.4); MONOCYTES # (AUTO) 0.7 10^3/uL (0.0-1.0); MONOCYTES % (AUTO) 9.3 %; NEUTROPHILS # (AUTO) 4.4 10^3/uL (1.5-6.6); NEUTROPHILS % (AUTO) 60.3 %; PLT - PLATELET COUNT 219 10^3/uL (130-450); RED BLOOD COUNT 6.71 10^6/uL (4.70-6.10); RED CELL DISTRIBUTION WIDTH 16.2 % (12.0-15.0); WHITE BLOOD COUNT 7.3 x10^3/uL (4.8-10.8)
[2018-12-24 16:58] LABS: ALBUMIN/GLOBULIN RATIO 1.3 (1.0-2.2); BILIRUBIN,TOTAL 1.3 mg/dL (0.2-1.0); CALCIUM 9.6 mg/dL (8.5-10.3); CREATININE 1.6 mg/dL (0.6-1.2); TOTAL PROTEIN 7.1 g/dL (6.7-8.2)
[2018-12-24 16:59] LABS: INR 2.7 (0.8-1.2); PT - PROTHROMBIN TIME 30.1 secs (9.9-12.6)
[2018-12-24 17:13] LABS: T4 (THYROXINE) 8.39 ug/dL (6.09-12.23)
[2018-12-24 17:17] LABS: THYROID STIMULATING HORMONE 2.3 uIU/mL (0.34-5.60)
== END 2018-12-24 16:17 | disposition home or self-care (01) ==
LOC: LAB 16:16
PROVIDERS: ATTEND Family Medicine
DX: I48.91 Unspecified atrial fibrillation (principal); K21.9 Gastro-esophageal reflux disease without esophagitis; I10 Essential (primary) hypertension; G47.30 Sleep apnea, unspecified
CPT/HCPCS: 36415; 80053; 83880; 84436; 84443; 84481; 85025; 85610

== ENCOUNTER 2019-01-22 12:02 | Outpatient (CLI) | payer MEDICARE | END 2019-01-22 12:03 | disposition home or self-care (01) | LOC: LAB 12:02 | PROVIDERS: ATTEND Family Medicine | DX: I48.91 Unspecified atrial fibrillation (principal) | CPT/HCPCS: 85610 ==

== ENCOUNTER 2019-02-11 15:03 | Outpatient (CLI) | payer MEDICARE ==
[2019-02-11 16:02] VITALS: BP 140/100
--- NOTE | 2019-02-11 16:02 | SLEEP CARE CONSULTATION ---
Information from patient questionnaire entered by Sharron Maynard. I have reviewed and concur with the information entered by Sharron Maynard. This document represents the service I personally performed and the decisions made by me, Shakira Davenport, RN, MSN, EMPLOYMENT ATTORNEY. History of Present Illness Previous diagnosis: Extremely Severe AHI: 132 (RDI from 2004 initial polysomnograpy ) Reason for CPAP/BiPAP follow up: annual Equipment obtained from: [facility] Mask style: Full face Backup mask available: Yes (He was fitted wtih a [employer]wear full face mask but did not work) HPI additional information: Patient's CPAP stopped working in 12/12/18 while traveling in [place]. His device was over 5 years old and had been working well prior to RV trip. His found a CPAP supplier [facility] in [facility] and was given a Light Extraction Air Sense. A prescription was sent by his PCP. He stated this office was also contacted for prescription from Dr. Kirby. He was told to follow up here for compliance so the above DME could bill patient's insurance. CPAP Compliance Data - Data Reviewed with Patient Average duration of nightly device use: 9 hours 11 minutes Compliance rate %: 97 Current pressure setting (cmH2O): [id number] Average residual AHI: 0.4 - Discussion Compliance data discussion: Humidity and heated hose set at auto. Subjective Missed days of use due to: reports: other (device stopping working) Patient concerns: reports: nasal congestion (chronic and does not interfere with CPAP use), other (machine started shutting off 2 nights ago and one last night and then it restarts. ). denies: aerophagia, mask discomfort, air blowing in eyes, mask leak noise, condensation in mask/hose, dry mouth, nose, throat, epistaxis On therapy, patient: reports: sleeping better, awakening more refreshed, being more awake and alert during the day, more rested overall. denies: drowsiness while driving Initial [place] Sleepiness Scale score: 7 Current [place] Sleepiness Scale score: 3 Review of Systems Cardiovascular: reports: high blood pressure, irregular heart rate or pulse, leg or foot swelling Respiratory: reports: shortness of breath, wheeze Gastrointestinal: reports: diarrhea, abdominal pain Urinary: reports: impotence Ear/Nose/Throat: reports: nasal congestion, sinus problems, dry mouth/throat Endocrine: reports: sluggishness Musculoskeletal: reports: joint pain, neck pain, back pain Immunologic: reports: sneezing Allergies and Home Medications Known drug allergies: No Home medication list reviewed: Yes Allergy and home medication list: No change in medications since 2016 visit except : Patient's diuretic just increased to 4 tabs a day to reduce blood pressure and unsure if it is the hydrochlorthiazide or not. He later sent a list of current medications as follows which was clarified by phone on 02-14-19 warfarin 2.5 mg every day but sunday when he take 2 tabs doxazosin 8mg nightly diltiazem ER 36omg daily lisinopril 40mg twice a day clonidine 0.1mg twice a day furosemide 40mg 2 per day timolol maleate eye drops one drop twice a day Physical Exam Blood Pressure: 140/100 (patient monitors at home. states runs his range. retaken at end of visit and no change. ) Cuff size: long Heart Rate: 89 O2 Saturation: 97 Height: 5 ft 9 in Weight (kg): 116.029 kg Body Mass Index: 37.8 BMI Classification: Class 2 Impression and Plan 1. Obstructive Sleep Apnea-Hypopnea Syndrome, with good treatment compliance and good apnea control. On CPAP therapy, there is improved sleep quality and continues to feel more rested overall. It took some time to obtain data from new device that he obtained while traveling in his out of state as his old CPAP quit working. There was no modem access or card. A new SD card was later found in office for a [employer] device and was used to retrieve compliance data. A copy of compliance data was given to patient to send to the [facility] in [place] where he got his CPAP so could be submitted to Medicare. He is also having difficulty with the new CPAP shutting off intermittently so an order was written to check device for malfunction. Until then, the smart start was stopped to see if any benefit. I was informed later by my academic services coordinator that a new prescription for supplies was needed so a DWO will be completed. He has also gained weight while on vacation and advised how that can affect his CPAP pressure requirements if continued. He is advised to lose weight. Patient's apnea severity and rationale for treatment to reduce apnea, improve sleep quality and reduce cardiovascular and cerebrovascular events was reviewed. I also reviewed the benefit of consistent device use of CPAP for hypertension, gastric reflux. 2. Elevated blood pressure. review of past visit notes reflect similar blood pressure range with diastolic running from 90 last visit and other times 100. Systolic generally around 150-160. Patient monitors blood pressure at home with usual range of 140/100 and recently re-evaluated with increase in diuretic medication. He was advised to continue monitoring blood pressure and follow up regularly with his PCP to keep blood pressure range as low as possible to reduce associated health risks. He is aware to contact his PCP if elevated higher. Plan Continue nasal CPAP pressure at 17 cm H2O. Check device for malfunction Turn off smart start. DWO prescription to [facility] Follow up with PCP as planned for evaluation of B/P and new medication adjustment. Notify me if snoring with the mask or feeling that the pressure is too much or too little. Attempt to lose weight. Return for follow-up in one year, or sooner if concerns arise. I spent 100% of this 40 minute visit face to face with the patient with greater than 50% of this was spent time counseling the patient and coordination of care. Addendum: When I clarified his medication list dropped off on 02-14-19 I clarified about device malfunction and it is no longer shutting off. I also informed him of the DWO prescription to [facility]. [place] [facility] [place] now does not want to submit to insurance. Patient had paid on credit card. Thus he is advised to contact Medicare to see if he can submit for reimbursement. I also clarified provider names to send report and would like it sent to Dr. Dutta and Dr. Valdez I spent 100% of this [] minute visit face to face with the patient with greater than 50% of this was spent time counseling the patient and coordination of care.
== END 2019-02-11 15:04 | disposition home or self-care (01) ==
LOC: SC 15:03
PROVIDERS: ATTEND Nurse Practitioner Family
DX: G47.33 Obstructive sleep apnea (adult) (pediatric) (principal); R03.0 Elevated blood-pressure reading, without diagnosis of hypertension
CPT/HCPCS: 99215; G0463; 99212

== ENCOUNTER 2019-02-21 10:59 | Outpatient (CLI) | payer MEDICARE | END 2019-02-21 11:00 | disposition home or self-care (01) | LOC: LAB 10:59 | PROVIDERS: ATTEND Family Medicine | DX: I48.91 Unspecified atrial fibrillation (principal) | CPT/HCPCS: 85610 ==

== ENCOUNTER 2019-03-07 12:41 | Outpatient (CLI) | payer MEDICARE | END 2019-03-07 12:42 | disposition home or self-care (01) | LOC: LAB 12:41 | PROVIDERS: ATTEND Family Medicine | DX: I48.91 Unspecified atrial fibrillation (principal) | CPT/HCPCS: 85610 ==

== ENCOUNTER 2019-03-24 10:24 | Outpatient (CLI) | payer MEDICARE ==
[2019-03-24 10:44] LABS: BASOPHILS # (AUTO) 0.1 10^3/uL (0.0-0.1); EOSINOPHILS # (AUTO) 0.2 10^3/uL (0.0-0.7); EOSINOPHILS % (AUTO) 1.9 %; LYMPHOCYTES % (AUTO) 25.4 %; MEAN CORPUSCULAR HEMOGLOBIN 28.8 pg (27.0-31.0); MEAN CORPUSCULAR HGB CONC 32.4 g/dL (32.0-36.0); MEAN CORPUSCULAR VOLUME 88.7 fL (80.0-94.0); MEAN PLATELET VOLUME 10.9 fL (7.4-11.4); MONOCYTES # (AUTO) 0.8 10^3/uL (0.0-1.0); MONOCYTES % (AUTO) 9.7 %; NEUTROPHILS # (AUTO) 4.8 10^3/uL (1.5-6.6); NEUTROPHILS % (AUTO) 61.5 %; PLT - PLATELET COUNT 178 10^3/uL (130-450); RED BLOOD COUNT 5.91 10^6/uL (4.70-6.10); RED CELL DISTRIBUTION WIDTH 14.6 % (12.0-15.0); WHITE BLOOD COUNT 7.8 x10^3/uL (4.8-10.8)
[2019-03-24 10:53] LABS: CALCIUM 9.7 mg/dL (8.5-10.3); CREATININE 1.3 mg/dL (0.6-1.2)
--- NOTE | 2019-03-24 12:20 | XRAY Report ---
Reason: AFIB Procedure Date: 03/24/2019 Accession Number: [id number] / [id number] Procedure: XR - Chest 2 View X-Ray CPT Code: 16712 FULL RESULT: EXAM: CHEST RADIOGRAPHY EXAM DATE: 03/24/2019 10:54 AM. CLINICAL HISTORY: AFIB. COMPARISON: CHEST 2 VIEW PA/LAT 01/23/2017 9:00 AM. TECHNIQUE: 2 views. FINDINGS: Lungs/Pleura: No focal opacities evident. No pleural effusion. No pneumothorax. Normal volumes. Mediastinum: Borderline heart size. Other: Mild degenerative change in the spine. IMPRESSION: Clear lungs. No acute findings RADIA
== END 2019-03-24 10:25 | disposition home or self-care (01) ==
LOC: LAB 10:24 → DI 10:25
PROVIDERS: ATTEND Family Medicine
DX: I48.91 Unspecified atrial fibrillation (principal); N18.3 Chronic kidney disease, stage 3 (moderate); K21.9 Gastro-esophageal reflux disease without esophagitis; G47.30 Sleep apnea, unspecified
CPT/HCPCS: 36415; 71046; 80048; 85025

== ENCOUNTER 2019-05-20 13:10 | Outpatient (CLI) | payer MEDICARE | END 2019-05-20 13:11 | disposition home or self-care (01) | LOC: LAB 13:10 | PROVIDERS: ATTEND Family Medicine | DX: I48.91 Unspecified atrial fibrillation (principal) | CPT/HCPCS: 85610 ==

== ENCOUNTER 2019-05-22 12:41 | Emergency (ER) | payer MEDICARE ==
[2019-05-22] MEDS ORDERED: diltiaZEM INJ 5 MG/ML VIAL IVP STA ×2 (13:36→13:37)
[2019-05-22 13:42] LABS: BASOPHILS # (AUTO) 0.1 10^3/uL (0.0-0.1); BASOPHILS % (AUTO) 0.4 %; HGB - HEMOGLOBIN 16.4 g/dL (14.0-18.0); LYMPHOCYTES % (AUTO) 5.4 %; MEAN CORPUSCULAR HEMOGLOBIN 28.2 pg (27.0-31.0); MEAN CORPUSCULAR HGB CONC 32.2 g/dL (32.0-36.0); MEAN CORPUSCULAR VOLUME 87.5 fL (80.0-94.0); MEAN PLATELET VOLUME 11.2 fL (7.4-11.4); MONOCYTES # (AUTO) 0.8 10^3/uL (0.0-1.0); MONOCYTES % (AUTO) 4.2 %; NEUTROPHILS # (AUTO) 16.3 10^3/uL (1.5-6.6); NEUTROPHILS % (AUTO) 89.3 %; PLT - PLATELET COUNT 193 10^3/uL (130-450); RED BLOOD COUNT 5.82 10^6/uL (4.70-6.10); RED CELL DISTRIBUTION WIDTH 14.5 % (12.0-15.0); WHITE BLOOD COUNT 18.2 x10^3/uL (4.8-10.8)
[2019-05-22 13:59] LABS: ALBUMIN 3.9 g/dL (3.2-5.5); ALBUMIN/GLOBULIN RATIO 1.3 (1.0-2.2); BILIRUBIN,TOTAL 2.5 mg/dL (0.2-1.0); CALCIUM 9.4 mg/dL (8.5-10.3); CREATININE 1.4 mg/dL (0.6-1.2); TOTAL PROTEIN 6.9 g/dL (6.7-8.2)
--- NOTE | 2019-05-22 14:42 | XRAY Report ---
Reason: afib with rvr Procedure Date: 05/22/2019 Accession Number: [id number] / [id number] Procedure: XR - Chest 1 View X-Ray CPT Code: 60547 Final Report FULL RESULT: EXAM: CHEST RADIOGRAPHY EXAM DATE: 05/22/2019 01:48 PM. CLINICAL HISTORY: Afib with rvr. COMPARISON: CHEST 2 VIEW 03/24/2019 10:48 AM. TECHNIQUE: 1 view. FINDINGS: Lungs/Pleura: Mild left basilar atelectasis. No focal opacities evident. No pleural effusion. No pneumothorax. Mediastinum: Within exam limitations, the cardiomediastinal contour is normal. Other: None. IMPRESSION: No acute cardiopulmonary process. Mild left basilar atelectasis. RADIA
[2019-05-22] MEDS ORDERED: diltiaZEM CD 120 MG CAPSULE PO STA (14:56)
[2019-05-22] MEDS ORDERED: POTASSIUM CHLORIDE 20 MEQ TABLET PO STA (15:09)
[2019-05-22] MEDS ORDERED: POTASSIUM CHLOR 20 MEQ/100 ML 20 MEQ/100 ML BAG IV ONE (15:10)
[2019-05-22] MEDS ORDERED: POTASSIUM CHLOR 10 MEQ/100 ML 10 MEQ/100 ML BAG IV STA ×2 (15:13)
--- NOTE | 2019-05-22 15:40 | ED Physician Documentation ---
History of Present Illness - Stated complaint Stated Complaint: HIGH BP - Chief complaint Chief Complaint: Cardiac - History obtained from History obtained from: Patient - History of Present Illness Timing: Prior to arrival Severity Comments: mild Quality: mild palpitations, feeling slightly lightheaded Radiates to: none Improved by: nothing Worsened by: nothing Associated symptoms: denies chest pain, sob, abdominal pain, nausea, vomiting, leg pain, swelling, fever - Treatment prior to arrival Treatment prior to arrival: none - Additonal information Additional information: Pt has hx of afib and states his family made him come in today because his heart rate was fast. He states he feels fine and would like to go home. Thinks maybe he was a little lightheaded. Has a hx of afib and is on warfarin but not on any medications for rate control. Review of Systems Ten Systems: 10 systems reviewed and negative Constitutional: reports: Reviewed and negative Throat: reports: Reviewed and negative Cardiac: reports: Palpitations Respiratory: reports: Reviewed and negative GI: reports: Reviewed and negative : reports: Reviewed and negative Skin: reports: Reviewed and negative Neurologic: reports: Reviewed and negative Psychiatric: reports: Reviewed and negative Endocrine: reports: Easy bruising / bleeding Immunocompromised: reports: Reviewed and negative PD PAST MEDICAL HISTORY - Past Medical History Past Medical History: Yes Cardiovascular: Hypertension, Atrial fibrillation Respiratory: Sleep apnea, CPAP use Endocrine/Autoimmune: None GI: GERD, Colon polyps, Hemorrhoids, Diverticulitis, Other : None HEENT: Other Psych: None Musculoskeletal: Gout Derm: None - Past Surgical History Past Surgical History: Yes General: Cholecystectomy, Colonoscopy, EGD - Present Medications Home Medications: Ambulatory Orders Medication Instructions Recorded Confirmed Diltiazem HCl [Cartia Xt] 360 mg PO DAILY 02/26/13 01/31/18 Lisinopril [Zestril] 40 mg PO BID 02/26/13 01/31/18 Doxazosin [Cardura] 16 mg PO DAILY PM 07/04/13 01/31/18 Timolol 0.5% Ophth Drops [Timoptic 2 drops EACHEYE BID 07/04/13 01/31/18 0.5% Ophth Drops] Warfarin Sodium 5 mg PO .QWEDNES10/06/14 01/31/18 cloNIDine [Catapres] 0.1 mg PO BID 01/21/17 01/31/18 Furosemide 20 mg PO DAILY 01/30/18 01/31/18 Warfarin Sodium 2.5 mg PO .DAILY EXECPT Sun01/30/18 01/31/18 Diltiazem HCl [Diltiazem 12Hr ER] 120 mg PO BID #30 cap.er.12h 05/22/19 Potassium Chloride 20 meq PO DAILY #10 tablet.er 05/22/19 - Allergies Allergies/Adverse Reactions: Allergies Allergy/AdvReac Type Severity Reaction Status Date / Time No Known Drug Allergies Allergy Verified 01/30/18 11:21 - Social History Does the pt smoke?: No Smoking Status: Never smoker Does the pt drink ETOH?: Yes Does the pt have substance abuse?: No - Immunizations Immunizations are current?: No - POLST Patient has POLST: No POLST Status: Full Code PD ED PE NORMAL - Vitals Vital signs reviewed: Yes - General General: Alert and oriented X 3, No acute distress, Well developed/nourished - HEENT HEENT: Atraumatic, Pharynx benign - Neck Neck: Supple, no meningeal sign - Cardiac Cardiac: No murmur, No gallop, No rub, Strong equal pulses - Respiratory Respiratory: No respiratory distress, Clear bilaterally - Abdomen Abdomen: Soft, Non tender, Non distended - Male Male : Deferred - Rectal Rectal: Deferred - Derm Derm: Normal color, Warm and dry, No rash - Extremities Extremities: No deformity, No tenderness to palpate, Normal ROM s pain, No edema, No calf tenderness / cord - Neuro Neuro: Alert and oriented X 3 Eye Opening: Spontaneous Motor: Obeys Commands Verbal: Oriented GCS Score: 15 - Psych Psych: Normal mood, Normal affect PD ED PE EXPANDED - Cardiac Cardiac: Tachy, Irregularly irregular, Other (no jvd) Results - Vitals Vitals: Oxygen O2 Source Room air - Labs Labs: Laboratory Tests 05/22/19 05/22/19 05/22/19 13:30 13:30 13:30 WBC 18.2 H RBC 5.82 Hgb 16.4 Hct 50.9 MCV 87.5 MCH 28.2 MCHC 32.2 RDW 14.5 Plt Count 193 MPV 11.2 Neut # (Auto) 16.3 H Lymph # (Auto) 1.0 L [place] # (Auto) 0.8 Eos # (Auto) 0.0 Baso # (Auto) 0.1 Absolute Nucleated RBC 0.00 Nucleated RBC % 0.0 Sodium 139 Potassium 3.1 L Chloride 103 Carbon Dioxide 26 Anion Gap 10.0 BUN 18 Creatinine 1.4 H Estimated GFR (MDRD) 50 L Glucose 147 H Calcium 9.4 Magnesium Total Bilirubin 2.5 H AST 24 ALT 27 Alkaline Phosphatase 57 Troponin I High Sens 13.1 Total Protein 6.9 Albumin 3.9 Globulin 3.0 Albumin/Globulin Ratio 1.3 Lipase 26 05/22/19 13:30 WBC RBC Hgb Hct MCV MCH MCHC RDW Plt Count MPV Neut # (Auto) Lymph # (Auto) [place] # (Auto) Eos # (Auto) Baso # (Auto) Absolute Nucleated RBC Nucleated RBC % Sodium Potassium Chloride Carbon Dioxide Anion Gap BUN Creatinine Estimated GFR (MDRD) Glucose Calcium Magnesium 2.3 Total Bilirubin AST ALT Alkaline Phosphatase Troponin I High Sens Total Protein Albumin Globulin Albumin/Globulin Ratio Lipase elevated leukocytosis, but pt without signs or symptoms of infection, stable creatinine, low potassium otherwise normal, neg troponin - Rads (name of study) CXR Radiology: Final report received, EMP read contemporaneously, See rad report (mild bibasilar atelectasis, otherwise negative) PD MEDICAL DECISION MAKING - ED course Complexity details: reviewed old records, reviewed results, re-evaluated patient, considered differential, d/w patient ED course: ddx- rapid afib, ACS, CHF, electrolyte abnormality, infection, dehydration 73 y/o M with hx of afib anticoagulated with warfin with afib with RVR today on arrival, minimally symptomatic and asking to go home. Pt's BP here is stable. Pt is on no meds for rate control at home. He denies cp or sob. He was given cardizem bolus for rate control and his HR improved to the 80s and this was followed up with extended release PO cardizem. He was noted to be hypokalemic and his potassium was repleted with PO potassium. Pt refused IV potassium. Magnesium was normal. I advised him to start cardizem for rate control at home given his BP was also elevated on arrival, since he refused IV potassium and refuses to stay for further oral repletion, he was given a prescription for oral potassium for home and f/u for his Doctor to recheck his potassium and his afib this week. Discussed return precautions iwth pt in case of worsening symptoms or new concerning symptoms such as cp, sob, syncope. - Critical Care Time(min): 25 Comments: management of rapid afib, given cardizem, management of hypokalemia with potassium replacement Time Includes: Direct patient care, Review records, Reassess patient, Document care Data interpretation: Labs, Pulse ox, CXR, Prior EKG, See progress note Departure - Departure Disposition: 01 Home, Self Care Clinical Impression: Hypokalemia Afib Qualifiers: Atrial fibrillation type: unspecified Qualified Code(s): I48.91 - Unspecified atrial fibrillation Condition: Stable Record reviewed to determine appropriate education?: Yes Instructions: Atrial Fibrillation Dc, Hypokalemia Dc Follow-Up: Carol Hope ARNP, [facility] [Primary Care Provider] - Within 1 week Prescriptions: Diltiazem HCl [Diltiazem 12Hr ER] 120 mg PO BID #30 cap.er.12h Potassium Chloride 20 meq PO DAILY #10 tablet.er Comments: You were found today to have rapid Atrial fibrillation. This improved with a medication called diltiazem (cardizem). You also have low potassium and were given oral replacement potassium in the ED. Your magnesium level was normal. You should take the diltiazem twice a day to control the rate of your afib and continue your warfarin. Take oral potassium supplementation for the next week and follow up with your doctor to recheck your potassium level and your heart rate (control of your afib). If you develop syncope, weakness, dizziness, chest pain, shortness of breath or return of a very rapid heart rate you should return to the ED. Discharge Date/Time: 05/22/19 16:03
[2019-05-22 15:50] VITALS: BP 137/87
== END 2019-05-22 16:03 | disposition home or self-care (01) ==
LOC: ED 12:41
DX: I48.91 Unspecified atrial fibrillation (principal); E87.6 Hypokalemia; I10 Essential (primary) hypertension; Z79.01 Long term (current) use of anticoagulants
CPT/HCPCS: 36415; 71045; 80053; 83690; 83735; 84484; 85025; 93005; 96374; 99283; 99284; A9270

== ENCOUNTER 2019-06-03 16:24 | Outpatient (CLI) | payer MEDICARE ==
[2019-06-03 16:44] LABS: BASOPHILS % (AUTO) 0.5 %; EOSINOPHILS # (AUTO) 0.1 10^3/uL (0.0-0.7); HGB - HEMOGLOBIN 17.4 g/dL (14.0-18.0); LYMPHOCYTES # (AUTO) 2.2 10^3/uL (1.5-3.5); LYMPHOCYTES % (AUTO) 25.5 %; MEAN CORPUSCULAR HGB CONC 32.8 g/dL (32.0-36.0); MEAN CORPUSCULAR VOLUME 88.4 fL (80.0-94.0); MONOCYTES # (AUTO) 0.6 10^3/uL (0.0-1.0); MONOCYTES % (AUTO) 7.3 %; NEUTROPHILS # (AUTO) 5.6 10^3/uL (1.5-6.6); NEUTROPHILS % (AUTO) 65.2 %; PLT - PLATELET COUNT 225 10^3/uL (130-450); RED BLOOD COUNT 6.01 10^6/uL (4.70-6.10); RED CELL DISTRIBUTION WIDTH 14.1 % (12.0-15.0); WHITE BLOOD COUNT 8.6 x10^3/uL (4.8-10.8)
[2019-06-03 16:55] LABS: ALBUMIN 4.3 g/dL (3.2-5.5); ALBUMIN/GLOBULIN RATIO 1.3 (1.0-2.2); BILIRUBIN,TOTAL 1.2 mg/dL (0.2-1.0); CALCIUM 9.9 mg/dL (8.5-10.3); CREATININE 1.4 mg/dL (0.6-1.2); TOTAL PROTEIN 7.5 g/dL (6.7-8.2)
== END 2019-06-03 16:25 | disposition home or self-care (01) ==
LOC: LAB 16:24
PROVIDERS: ATTEND Family Medicine
DX: D72.829 Elevated white blood cell count, unspecified (principal); I12.9 Hypertensive chronic kidney disease with stage 1 through stage 4 chronic kidney disease, or unspecified chronic kidney disease; N18.3 Chronic kidney disease, stage 3 (moderate); I48.91 Unspecified atrial fibrillation
CPT/HCPCS: 36415; 80053; 85025; 85610

== ENCOUNTER 2019-06-16 10:48 | Emergency (ER) | payer MEDICARE ==
[2019-06-16] MEDS ORDERED: HYDROmorphone 2 MG/ML VIAL IVP STA (12:37)
--- NOTE | 2019-06-16 12:44 | ED Physician Documentation ---
PD HPI LOWER EXT INJURY - Stated complaint Stated Complaint: BI LAT FOOT PX/UNABLE TO WALK - Chief complaint Chief Complaint: Ext Problem - History obtained from History obtained from: Patient, Family - History of Present Illness PD HPI LOW EXT INJURY LOCATION: Right, Ankle Type of injury: Other (no injury or fall) Timing - onset: How many days ago (2) Timing - duration: Days (2) Timing - details: Gradual onset, Other (worsened today) Severity Comments: moderate R ankle pain, swelling, cannot ambulate Improved by: Rest, Other (elevation) Worsened by: Other (weight bearing) Associated symptoms: Swelling, Discolored. No: Weakness, Numbness, Tingling Contributing factors: Anticoagulated. No: Prior ortho surgery, Prosthetic joint, Work related Similar symptoms before: No: Has not had sx before Recently seen: Not recently seen - Treatment prior to arrival Treatment prior to arrival: none Review of Systems Ten Systems: 10 systems reviewed and negative Constitutional: denies: Fever Cardiac: reports: Reviewed and negative Respiratory: reports: Reviewed and negative GI: reports: Reviewed and negative Skin: reports: Reviewed and negative Musculoskeletal: reports: Extremity pain, Extremity swelling Neurologic: denies: Generalized weakness, Focal weakness, Numbness Endocrine: reports: Easy bruising / bleeding (pt is on coumadin) Immunocompromised: reports: Reviewed and negative PD PAST MEDICAL HISTORY - Past Medical History Past Medical History: Yes Cardiovascular: Hypertension, Atrial fibrillation Respiratory: Sleep apnea, CPAP use Endocrine/Autoimmune: None GI: GERD, Colon polyps, Hemorrhoids, Diverticulitis, Other : None HEENT: Other Psych: None Musculoskeletal: Gout Derm: None - Past Surgical History Past Surgical History: Yes General: Cholecystectomy, Colonoscopy, EGD - Present Medications Home Medications: Ambulatory Orders Medication Instructions Recorded Confirmed Diltiazem HCl [Cartia Xt] 360 mg PO DAILY 02/26/13 01/31/18 Lisinopril [Zestril] 40 mg PO BID 02/26/13 01/31/18 Doxazosin [Cardura] 16 mg PO DAILY PM 07/04/13 01/31/18 Timolol 0.5% Ophth Drops [Timoptic 2 drops EACHEYE BID 07/04/13 01/31/18 0.5% Ophth Drops] Warfarin Sodium 5 mg PO .QWE10/06/14 01/31/18 cloNIDine [Catapres] 0.1 mg PO BID 01/21/17 01/31/18 Furosemide 20 mg PO DAILY 01/30/18 01/31/18 Warfarin Sodium 2.5 mg PO .DAILY EXECPT Sun01/30/18 01/31/18 Diltiazem HCl [Diltiazem 12Hr ER] 120 mg PO BID #30 cap.er.12h 05/22/19 Potassium Chloride 20 meq PO DAILY #10 tablet.er 05/22/19 Tramadol HCl 50 mg PO Q4HR PRN #20 tablet 06/16/19 - Allergies Allergies/Adverse Reactions: Allergies Allergy/AdvReac Type Severity Reaction Status Date / Time No Known Drug Allergies Allergy Verified 06/16/19 10:59 - Social History Does the pt smoke?: No Smoking Status: Never smoker Does the pt drink ETOH?: Yes Does the pt have substance abuse?: No - Immunizations Immunizations are current?: No - POLST Patient has POLST: No POLST Status: Full Code PD ED PE NORMAL - Vitals Vital signs reviewed: Yes - General General: Alert and oriented X 3, No acute distress, Well developed/nourished - HEENT HEENT: Atraumatic, Pharynx benign - Neck Neck: Supple, no meningeal sign - Cardiac Cardiac: RRR - Respiratory Respiratory: No respiratory distress - Abdomen Abdomen: Soft, Non distended - Male Male : Deferred - Rectal Rectal: Deferred - Neuro Neuro: Alert and oriented X 3 Eye Opening: Spontaneous Motor: Obeys Commands Verbal: Oriented GCS Score: 15 - Psych Psych: Normal mood, Normal affect PD ED PE EXPANDED - Extremities Extremities: Tenderness (R medial anterior ankle at the ATFL joint ), Swelling, Right ankle, Pedal edema R, Motor intact, Sensory intact, Vascular intact, Tendon intact, Other (right foot is red and warm, R calf more swollen then left, mild tenderness ). No: Deformity, Limited ROM, Bruising, Abrasion, Laceration Results - Vitals Vitals: Vital Signs - 24 hr 06/16/19 06/16/19 06/16/19 10:54 13:08 15:00 Temperature 36.6 C 36.7 C Heart Rate 80 69 88 Respiratory 18 18 20 Rate Blood Pressure 138/100 H 142/100 H 151/96 H O2 Saturation 97 96 97 06/16/19 16:19 Temperature Heart Rate 77 Respiratory 16 Rate Blood Pressure 149/92 H O2 Saturation 98 Oxygen O2 Source Room air - Labs Labs: Laboratory Tests 06/16/19 06/16/19 06/16/19 12:50 12:50 12:50 WBC 9.2 RBC 6.15 H Hgb 17.1 Hct 55.2 H MCV 89.8 MCH 27.8 MCHC 31.0 L RDW 15.1 H Plt Count 161 MPV 11.6 H Neut # (Auto) 6.0 Lymph # (Auto) 2.0 Piatt # (Auto) 1.0 Eos # (Auto) 0.1 Baso # (Auto) 0.1 Absolute Nucleated RBC 0.00 Nucleated RBC % 0.0 ESR PT 25.8 H INR 2.4 H Sodium 142 Potassium 4.0 Chloride 106 Carbon Dioxide 27 Anion Gap 9.0 BUN 19 Creatinine 1.2 Estimated GFR (MDRD) 60 L Glucose 115 H Calcium 9.5 C-Reactive Protein 4.2 H 06/16/19 13:18 WBC RBC Hgb Hct MCV MCH MCHC RDW Plt Count MPV Neut # (Auto) Lymph # (Auto) Piatt # (Auto) Eos # (Auto) Baso # (Auto) Absolute Nucleated RBC Nucleated RBC % ESR 4 PT INR Sodium Potassium Chloride Carbon Dioxide Anion Gap BUN Creatinine Estimated GFR (MDRD) Glucose Calcium C-Reactive Protein therapeutic INR, normal WBC, normal sed rate, mildly elevated CRP - Rads (name of study) US RLE Radiology: Final report received, Discussed with rads (R saphenous vein clot ), See rad report R ankle xray Radiology: Final report received, EMP read contemporaneously (negative ), See rad report PD MEDICAL DECISION MAKING - ED course Complexity details: reviewed results, re-evaluated patient, considered d ifferential, d/w patient, d/w family ED course: ddx- ankle injury/fx, sprain, gout, arthritis, DVT, Superficial venous clot, cellulitis, septic arthritis. 74 y/o M with atraumatic R foot/ankle lower extremity swelling, pain with ambulating, worsening swelling when dependent. No fever. Area is not red or hot like prior episodes of cellulitis and no fever. no hx of Gout (disagree with nurses note). No fever again to suggest septic arthritis, no pain with axial loading. Pt has no hx to suggest a sprain. Labs not suggestive of infectious etiology. US of R leg showed a saphenous venous clot, no DVT. He is already on coumadin and is therapeutic on this. Discussed theses results with pt and family. Given this is a superficial clot no additional therapy is needed at this time. Advised elevation, compression stockings, analgesics as needed. Pt is stable for discharge with outpt f/u. Departure - Departure Disposition: 01 Home, Self Care Clinical Impression: Saphenous vein clot Qualifiers: Laterality: right Qualified Code(s): I82.811 - Embolism and thrombosis of superficial veins of right lower extremity Condition: Stable Record reviewed to determine appropriate education?: Yes Follow-Up: Carol Hope ARNP, [employer]TE[employer] WORKER[employer] [Primary Care Provider] - Within 1 week Prescriptions: Tramadol HCl 50 mg PO Q4HR PRN #20 tablet PRN Reason: Pain Comments: Your labs today were normal and did not show signs of infection. Your xray was negative for injury or fluid in your joint. You do have a blood clot in your saphenous vein on ultrasound which is likely causing your symptoms. Given that you are already on a blood thinner and this is not a life threatening blood clot there is no intervention needed for this. You can elevate your leg and continue your coumadin, use compression stocking to reduce swelling. I discussed these results with your Nurse Practitioner Herminia who agrees with this plan of care. Discharge Date/Time: 06/16/19 16:20
[2019-06-16 12:57] LABS: BASOPHILS # (AUTO) 0.1 10^3/uL (0.0-0.1); BASOPHILS % (AUTO) 0.7 %; EOSINOPHILS # (AUTO) 0.1 10^3/uL (0.0-0.7); EOSINOPHILS % (AUTO) 0.5 %; HGB - HEMOGLOBIN 17.1 g/dL (14.0-18.0); LYMPHOCYTES % (AUTO) 21.5 %; MEAN CORPUSCULAR HEMOGLOBIN 27.8 pg (27.0-31.0); MEAN CORPUSCULAR VOLUME 89.8 fL (80.0-94.0); MEAN PLATELET VOLUME 11.6 fL (7.4-11.4); MONOCYTES % (AUTO) 11.2 %; NEUTROPHILS % (AUTO) 65.8 %; PLT - PLATELET COUNT 161 10^3/uL (130-450); RED BLOOD COUNT 6.15 10^6/uL (4.70-6.10); RED CELL DISTRIBUTION WIDTH 15.1 % (12.0-15.0); WHITE BLOOD COUNT 9.2 x10^3/uL (4.8-10.8)
[2019-06-16 13:03] LABS: INR 2.4 (0.8-1.2); PT - PROTHROMBIN TIME 25.8 secs (9.9-12.6)
[2019-06-16 13:14] LABS: CALCIUM 9.5 mg/dL (8.5-10.3); CREATININE 1.2 mg/dL (0.6-1.2); CRP - C-REACTIVE PROTEIN 4.2 mg/dL (0-1.0)
--- NOTE | 2019-06-16 13:28 | XRAY Report ---
Reason: ankle pain, swelling, atraumatic Procedure Date: 06/16/2019 Accession Number: [id number] / [id number] Procedure: XR - Ankle 3 View RT CPT Code: Final Report FULL RESULT: EXAM: RIGHT ANKLE RADIOGRAPHY EXAM DATE: 06/16/2019 12:41 PM. CLINICAL HISTORY: Ankle pain, swelling, atraumatic. COMPARISON: None. TECHNIQUE: 3 views. FINDINGS: Bones: No acute fracture or bony lesion. Degenerative spurring. Joints: Joint space narrowing degenerative changes of the right tibiotalar joint and right midfoot. No ankle effusion. No dislocation. Soft Tissues: Soft tissue swelling. IMPRESSION: 1. No acute osseous abnormalities. 2. Degenerative changes of the right ankle and right midfoot. RADIA
--- NOTE | 2019-06-16 15:40 | Ultrasound Report ---
Reason: R lower extremity swelling Procedure Date: 06/16/2019 Accession Number: [id number] / [id number] Procedure: US - Duplex Ext Veins Right CPT Code: Final Report FULL RESULT: EXAM: RIGHT LOWER EXTREMITY VENOUS ULTRASOUND EXAM DATE: 06/16/2019 02:45 PM. CLINICAL HISTORY: R lower extremity swelling. COMPARISON: DUPLEX EXT VEINS RIGHT 11/23/2017 11:04 AM. TECHNIQUE: Real-time sonographic vascular imaging was performed by the geophysical drafter through the lower extremity utilizing both color-flow and Doppler spectral analysis. Multiple b2b sales representative static images were saved for review. FINDINGS: Common Femoral Vein (CFV): Normal. CFV-GSV Junction: Normal. Profunda Femoral Vein (PFV): Normal. Femoral Vein (FV) Prox: Normal. Femoral Vein (FV) Mid: Normal. Femoral Vein (FV) Dist: Normal. Popliteal Vein: Normal. Posterior Tibial Veins: Normal. Peroneal Veins: Normal. Contralateral Side CFV: Normal. Other: There is a partially occlusive, echogenic/ subacute appearing thrombus in greater saphenous vein. However the common femoral vein greater saphenous vein junction appears unremarkable. IMPRESSION: No evidence for deep venous thrombosis. A partially occlusive, echogenic/ subacute appearing thrombus in superficial vein/ greater saphenous vein. However the common femoral vein-greater saphenous vein junction appears unremarkable. RADIA
[2019-06-16 16:20] VITALS: BP 149/92
== END 2019-06-16 16:20 | disposition home or self-care (01) ==
LOC: ED 10:48
DX: I82.811 Embolism and thrombosis of superficial veins of right lower extremity (principal); M19.071 Primary osteoarthritis, right ankle and foot; Z79.01 Long term (current) use of anticoagulants; I48.91 Unspecified atrial fibrillation; I10 Essential (primary) hypertension
CPT/HCPCS: 36415; 73610; 80048; 85025; 85610; 85651; 86140; 93971; 96374; 99284; J1170

== ENCOUNTER 2019-07-04 16:51 | Outpatient (CLI) | payer MEDICARE ==
[2019-07-04 17:23] LABS: BILIRUBIN,URINE NEGATIVE (NEGATIVE); GLUCOSE, URINE (UA) NEGATIVE (NEGATIVE); KETONES,URINE (UA) NEGATIVE (NEGATIVE); LEUKOCYTE ESTERASE, URINE NEGATIVE (NEGATIVE); NITRITE,URINE NEGATIVE (NEGATIVE); OCCULT BLOOD,URINE NEGATIVE (NEGATIVE); PROTEIN,URINE NEGATIVE (NEGATIVE); UROBILINOGEN,URINE 0.2 (NORMAL) E.U./dL (NORMAL)
[2019-07-04 17:24] LABS: CLARITY,URINE CLEAR (CLEAR)
[2019-07-04 17:49] LABS: CRP - C-REACTIVE PROTEIN 4.7 mg/dL (0-1.0)
[2019-07-04 18:00] LABS: PSA FREE 0.72 ng/mL (0.16-2.81)
[2019-07-04 18:01] LABS: PSA TOTAL 1.67 ng/mL (0.000-2.000)
[2019-07-04 18:02] LABS: URIC ACID 9.4 mg/dL (2.6-7.2)
== END 2019-07-04 16:52 | disposition home or self-care (01) ==
LOC: LAB 16:51
PROVIDERS: ATTEND Nurse Practitioner
DX: E87.6 Hypokalemia (principal); R30.0 Dysuria; R61 Generalized hyperhidrosis; I47.1 Supraventricular tachycardia; R60.9 Edema, unspecified; M10.9 Gout, unspecified
CPT/HCPCS: 36415; 81001; 81003; 84153; 84154; 84550; 85651; 86140; 87086

== ENCOUNTER 2019-07-15 12:57 | Outpatient (CLI) | payer MEDICARE | END 2019-07-15 12:58 | disposition home or self-care (01) | LOC: DI 12:57 | PROVIDERS: ATTEND Nurse Practitioner | DX: I47.1 Supraventricular tachycardia (principal); I48.91 Unspecified atrial fibrillation; G47.30 Sleep apnea, unspecified; I11.9 Hypertensive heart disease without heart failure | CPT/HCPCS: 93306 ==

== ENCOUNTER 2019-07-21 15:50 | Outpatient (CLI) | payer MEDICARE ==
--- NOTE | 2019-07-22 08:21 | Ultrasound Report ---
Reason: SVT, PERIPHERAL EDEMA Procedure Date: 07/21/2019 Accession Number: [id number] / [id number] Procedure: US - Duplex Ext Veins Bilateral CPT Code: Final Report FULL RESULT: EXAM: BILATERAL LOWER EXTREMITY VENOUS ULTRASOUND EXAM DATE: 07/21/2019 05:40 PM. CLINICAL HISTORY: SVT, PERIPHERAL EDEMA. COMPARISON: None. TECHNIQUE: Real-time sonographic vascular imaging was performed by the internet merchant through the lower extremities utilizing both color-flow and Doppler spectral analysis. Multiple patient accounting representative static images were saved for review. FINDINGS: Right: Common Femoral Vein (CFV): Normal. CFV-GSV Junction: Normal. Profunda Femoral Vein (PFV): Normal. Femoral Vein (FV) Prox: Normal. Femoral Vein (FV) Mid: Normal. Femoral Vein (FV) Dist: Normal. Popliteal Vein: Normal. Posterior Tibial Veins: Normal. Peroneal Veins: Normal. Left: Common Femoral Vein (CFV): Normal. CFV-GSV Junction: Normal. Profunda Femoral Vein (PFV): Normal. Femoral Vein (FV) Prox: Normal. Femoral Vein (FV) Mid: Normal. Femoral Vein (FV) Dist: Normal. Popliteal Vein: Normal. Posterior Tibial Veins: Normal. Peroneal Veins: Normal. Other: None. IMPRESSION: No evidence for deep venous thrombosis bilaterally. RADIA
--- NOTE | 2019-07-22 12:13 | Ultrasound Report ---
Reason: SVT, PERIPHERAL EDEMA Procedure Date: 07/21/2019 Accession Number: [id number] / [id number] Procedure: US - Ankle Brachial Index CPT Code: Final Report FULL RESULT: EXAM: BILATERAL ANKLE/BRACHIAL INDEX EXAM DATE: 07/21/2019 05:00 PM. CLINICAL HISTORY: Supraventricular tachycardia, peripheral edema. COMPARISON: None. TECHNIQUE: A blood pressure cuff and pulse volume recording Doppler ultrasound was used to evaluate the arterial pressures in the arms and ankle. No images were acquired. FINDINGS: Brachial pressure: Right brachial artery: 176 mmHg, index 1.00 Left brachial artery: 183 mmHg, index 1.00 Right ankle pressures:188 mmHg, index 1.1. Left ankle pressures: 185 mmHg, index 1.0. Irregular heartbeat noted. IMPRESSION: 1. Right ankle/brachial index: 1.1. 2. Left ankle/brachial index: 1.0. ANKLE/BRACHIAL INDEX REFERENCE STANDARDS 1.0-1.4: Normal 0.90-0.99: Borderline < 0.9: Abnormal RADIA
== END 2019-07-21 15:51 | disposition home or self-care (01) ==
LOC: DI 15:50
PROVIDERS: ATTEND Nurse Practitioner
DX: I47.1 Supraventricular tachycardia (principal); R60.9 Edema, unspecified
CPT/HCPCS: 93922; 93970

== ENCOUNTER 2019-07-23 11:05 | Outpatient (CLI) | payer MEDICARE | END 2019-07-23 11:06 | disposition home or self-care (01) | LOC: LAB 11:05 | PROVIDERS: ATTEND Family Medicine | DX: I48.91 Unspecified atrial fibrillation (principal) | CPT/HCPCS: 85610 ==

== ENCOUNTER 2019-08-04 23:11 | Outpatient (CLI) | payer MEDICARE | END 2019-08-04 23:12 | disposition critical access hospital (66) | LOC: EMS 23:11 | PROVIDERS: ATTEND Surgery | DX: R07.89 Other chest pain (principal); M54.2 Cervicalgia | CPT/HCPCS: A0425; A0427 ==

== ENCOUNTER 2019-08-04 23:23 | Emergency (ER) | payer MEDICARE ==
--- NOTE | 2019-08-04 23:22 | ED Physician Documentation ---
History of Present Illness - Stated complaint Stated Complaint: CP - Chief complaint Chief Complaint: Cardiac - History obtained from History obtained from: Patient (Patient is a 74-year-old male with extensive history of hypertension presents with severe chest pain and abdominal pain. On arrival the patient is actively vomiting And complaining of severe abdominal and chest pain his abdomen is distended.) Review of Systems Constitutional: reports: Reviewed and negative Eyes: reports: Reviewed and negative Ears: reports: Reviewed and negative Nose: reports: Reviewed and negative Throat: reports: Reviewed and negative Cardiac: reports: Chest pain / pressure Respiratory: reports: Dyspnea GI: reports: Abdominal Pain, Abdominal Swelling, Nausea, Vomiting, Reviewed and negative : reports: Reviewed and negative Skin: reports: Reviewed and negative Musculoskeletal: reports: Reviewed and negative Neurologic: reports: Reviewed and negative Psychiatric: reports: Reviewed and negative Endocrine: reports: Reviewed and negative Immunocompromised: reports: Reviewed and negative PD PAST MEDICAL HISTORY - Present Medications Home Medications: Ambulatory Orders Medication Instructions Recorded Confirmed Diltiazem HCl [Cartia Xt] 360 mg PO DAILY 02/26/13 08/04/19 lisinopriL [Zestril] 40 mg PO BID 02/26/13 08/04/19 Doxazosin [Cardura] 16 mg PO DAILY PM 07/04/13 08/04/19 Timolol 0.5% Ophth Drops [Timoptic 2 drops EACHEYE BID 07/04/13 08/04/19 0.5% Ophth Drops] Warfarin Sodium 5 mg PO .QWEDNES10/06/14 08/04/19 cloNIDine [Catapres] 0.1 mg PO BID 01/21/17 08/04/19 Furosemide 40 mg PO DAILY 01/30/18 08/04/19 Warfarin Sodium 2.5 mg PO .DAILY EXECPT Sun01/30/18 08/04/19 Diltiazem HCl [Diltiazem 12Hr ER] 120 mg PO BID #30 cap.er.12h 05/22/19 08/04/19 Potassium Chloride 20 meq PO DAILY #10 tablet.er 05/22/19 08/04/19 Tramadol HCl 50 mg PO Q4HR PRN #20 tablet 06/16/19 08/04/19 Diltiazem HCl [Diltiazem 12Hr ER] 120 mg PO DAILY 08/04/19 Doxazosin [Cardura] 1 mg PO DAILY 08/04/19 08/04/19 Ketoconazole 15 gm TOP DAILY 08/04/19 08/04/19 Potassium Chloride 8 meq PO DAILY 08/04/19 08/04/19 predniSONE [Deltasone] 20 mg PO DAILY 08/04/19 08/04/19 - Allergies Allergies/Adverse Reactions: Allergies Allergy/AdvReac Type Severity Reaction Status Date / Time No Known Drug Allergies Allergy Verified 08/04/19 23:37 PD ED PE NORMAL - Vitals Vital signs reviewed: Yes - General General: Alert and oriented X 3, Other (In moderate distress abdomen soft diffusely distended) - HEENT HEENT: Atraumatic, PERRL, EOMI - Neck Neck: Supple, no meningeal sign - Cardiac Cardiac: RRR, No murmur, Other (Unequal pulses) - Respiratory Respiratory: No respiratory distress, Clear bilaterally - Abdomen Abdomen: Other (The abdomen is diffusely distended it severely tender to palpation and has diminished bowel sounds he is actively guarding) - Derm Derm: Warm and dry - Extremities Extremities: No deformity - Neuro Neuro: Alert and oriented X 3 - Psych Psych: Normal mood, Normal affect Results - Vitals Vitals: Vital Signs - 24 hr 08/04/19 08/05/19 08/05/19 23:29 00:12 00:16 Temperature 36.6 C Heart Rate 95 54 L Respiratory 24 34 H Rate Blood Pressure 127/74 126/81 H Blood Pressure 103/58 L [Left] Blood Pressure 127/74 [Right] O2 Saturation 90 L 97 08/05/19 08/05/19 08/05/19 00:45 01:05 01:15 Temperature Heart Rate 62 61 60 Respiratory 26 H 26 H 33 H Rate Blood Pressure 141/96 H 128/83 H 139/88 H Blood Pressure [Left] Blood Pressure [Right] O2 Saturation 97 96 99 08/05/19 02:03 Temperature 37.1 C Heart Rate Respiratory Rate Blood Pressure Blood Pressure [Left] Blood Pressure [Right] O2 Saturation Oxygen O2 Source Nasal cannula Oxygen Flow Rate 2 - EKG (time done) 12:30 Rate: Other (No STEMI) - Labs Labs: Laboratory Tests 08/04/19 08/04/19 08/04/19 00:00 00:00 00:22 WBC RBC Hgb Hct MCV MCH MCHC RDW Plt Count MPV Neut # (Auto) Lymph # (Auto) Pope # (Auto) Eos # (Auto) Baso # (Auto) Absolute Nucleated RBC Nucleated RBC % PT INR APTT Sodium 140 Potassium 3.1 L Chloride 106 Carbon Dioxide 24 Anion Gap 10.0 BUN 22 H Creatinine 1.5 H Estimated GFR (MDRD) 46 L Glucose 160 H Lactic Acid 2.0 Calcium 9.0 Total Bilirubin 0.9 AST 23 ALT 30 Alkaline Phosphatase 65 Total Creatine Kinase 20 L Troponin I High Sens 11.6 B-Natriuretic Peptide Total Protein 6.0 L Albumin 3.2 Globulin 2.8 Albumin/Globulin Ratio 1.1 Lipase 29 Blood Type Blood Type Recheck Antibody Screen 08/04/19 08/04/19 08/04/19 23:45 23:45 23:45 WBC 10.7 RBC 5.74 Hgb 16.0 Hct 50.4 MCV 87.8 MCH 27.9 MCHC 31.7 L RDW 14.5 Plt Count 209 MPV 10.6 Neut # (Auto) 6.5 Lymph # (Auto) 3.1 Pope # (Auto) 0.8 Eos # (Auto) 0.2 Baso # (Auto) 0.1 Absolute Nucleated RBC 0.00 Nucleated RBC % 0.0 PT 28.6 H INR 2.7 H APTT 32.5 Sodium Potassium Chloride Carbon Dioxide Anion Gap BUN Creatinine Estimated GFR (MDRD) Glucose Lactic Acid Calcium Total Bilirubin AST ALT Alkaline Phosphatase Total Creatine Kinase Troponin I High Sens B-Natriuretic Peptide 199 H Total Protein Albumin Globulin Albumin/Globulin Ratio Lipase Blood Type Blood Type Recheck Antibody Screen 08/04/19 08/05/19 23:45 00:22 WBC RBC Hgb Hct MCV MCH MCHC RDW Plt Count MPV Neut # (Auto) Lymph # (Auto) Pope # (Auto) Eos # (Auto) Baso # (Auto) Absolute Nucleated RBC Nucleated RBC % PT INR APTT Sodium Potassium Chloride Carbon Dioxide Anion Gap BUN Creatinine Estimated GFR (MDRD) Glucose Lactic Acid Calcium Total Bilirubin AST ALT Alkaline Phosphatase Total Creatine Kinase Troponin I High Sens B-Natriuretic Peptide Total Protein Albumin Globulin Albumin/Globulin Ratio Lipase Blood Type O POSITIVE Blood Type Recheck O POSITIVE Antibody Screen NEGATIVE PD MEDICAL DECISION MAKING - ED course Complexity details: re-evaluated patient (Patient was reevaluated multiple times while he was in the emergency department he maintain a systolic blood pressure in the 110s to 120s as well as a heart rate 60s patient will be transferred via [facility] to a higher level of care that has CT surgery.), d/w patient, d/w family, other (Patient's initial evaluation on arrival is concerning for aortic dissection as well as a abdominal aortic aneurysm I did a rapid bedside ultrasound that was equivocal due to the patient's body habitus patient was immediately stabilized and taken emergently to the CT scanner by myself with emergent airway equipment as well as crash cart available patient was hemodynamically stable and will get an emergent CT angiogram of the chest was as well as the abdomen which confirmed my suspicion of acute aortic dissection patient was immediately stabilized he had a couple episodes where he was bradycardic in the 40s We manage the patient's pain we were able to maintain his blood pressure of systolic between 1 10-1 20 as well as heart rate in the 60s. Patient stable for transfer via [facility].) - Consults Consults: Discussed case with (Case discussed with Dr. eric morris CT [facility] at [facility], he will accept this patient, patient will be transferred via [facility] to dr. eric morris at [facility] also spoke with dr scott estrada at emergency room [facility] who has also agreed to accept this patient. initially i spoke with dr murray CT surgery at [facility] in [place] he recommends trying [facility]. 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
[2019-08-04 23:54] LABS: BASOPHILS # (AUTO) 0.1 10^3/uL (0.0-0.1); BASOPHILS % (AUTO) 0.6 %; EOSINOPHILS # (AUTO) 0.2 10^3/uL (0.0-0.7); LYMPHOCYTES # (AUTO) 3.1 10^3/uL (1.5-3.5); LYMPHOCYTES % (AUTO) 28.9 %; MEAN CORPUSCULAR HEMOGLOBIN 27.9 pg (27.0-31.0); MEAN CORPUSCULAR HGB CONC 31.7 g/dL (32.0-36.0); MEAN CORPUSCULAR VOLUME 87.8 fL (80.0-94.0); MEAN PLATELET VOLUME 10.6 fL (7.4-11.4); MONOCYTES # (AUTO) 0.8 10^3/uL (0.0-1.0); MONOCYTES % (AUTO) 7.2 %; NEUTROPHILS # (AUTO) 6.5 10^3/uL (1.5-6.6); NEUTROPHILS % (AUTO) 60.9 %; PLT - PLATELET COUNT 209 10^3/uL (130-450); RED BLOOD COUNT 5.74 10^6/uL (4.70-6.10); RED CELL DISTRIBUTION WIDTH 14.5 % (12.0-15.0); WHITE BLOOD COUNT 10.7 x10^3/uL (4.8-10.8)
[2019-08-04 23:58] LABS: INR 2.7 (0.8-1.2); PT - PROTHROMBIN TIME 28.6 secs (9.9-12.6)
[2019-08-05 00:05] LABS: PARTIAL THROMBOPLASTIN TIME 32.5 secs (24.9-33.3)
[2019-08-05] MEDS ORDERED: IOVERSOL 320 100 ML VIAL IVP ONE (00:12)
[2019-08-05] MEDS ORDERED: ONDANSETRON 4 MG/2 ML VIAL IVP STA ×2 (00:44→00:50)
[2019-08-05] MEDS ORDERED: SODIUM CHLORIDE 0.9% 1,000 ML IV ONE ×2 (00:44)
[2019-08-05 00:45] LABS: ALBUMIN 3.2 g/dL (3.2-5.5); ALBUMIN/GLOBULIN RATIO 1.1 (1.0-2.2); BILIRUBIN,TOTAL 0.9 mg/dL (0.2-1.0); CREATININE 1.5 mg/dL (0.6-1.2)
[2019-08-05] MEDS ORDERED: MORPHINE 2 MG/ML CARPUJECT IVP STA (00:50)
[2019-08-05] MEDS ORDERED: LABETALOL VIAL 200 MG in SODIUM CHLORIDE 0.9% 160 ML IV STA (00:51)
--- NOTE | 2019-08-05 00:52 | XRAY Report ---
Reason: cp Procedure Date: 08/05/2019 Accession Number: [id number] / [id number] Procedure: XR - Chest 1 View X-Ray CPT Code: 88447 Final Report FULL RESULT: EXAM: CHEST RADIOGRAPHY EXAM DATE: 08/05/2019 12:29 AM. CLINICAL HISTORY: Chest pain COMPARISON: CHEST 1 VIEW 05/22/2019 1:30 PM. TECHNIQUE: 1 view. FINDINGS: The mediastinal silhouette is prominent. The heart size is normal. Bibasilar opacities are seen, likely atelectasis. There is no pleural effusion or pneumothorax. Degenerative changes are seen in the right acromioclavicular joint. IMPRESSION: Bibasilar opacities, likely atelectasis. RADIA
[2019-08-05] MEDS ORDERED: LABETALOL 5 MG/1 ML 20 ML MDV IVP STA (00:54)
[2019-08-05] MEDS ORDERED: MORPHINE 2 MG/ML CARPUJECT ONE (00:54)
--- NOTE | 2019-08-05 00:55 | CT Report ---
Reason: chest pain hypotension Procedure Date: 08/05/2019 Accession Number: [id number] / [id number] Procedure: CT - ANGIO CHEST W/WO CPT Code: Final Report FULL RESULT: EXAM: CT ANGIOGRAM CHEST, ABDOMEN AND PELVIS EXAM DATE: 08/05/2019 12:13 AM CLINICAL HISTORY: Chest pain and hypotension. Abdominal distention, abdominal aortic aneurysm. COMPARISONS: CHEST ANGIO 08/04/2019 11:57 PM, ABDOMEN/PELVIS W/ 12/13/2017 8:39 PM. TECHNIQUE: Routine axial helical CT angiographic imaging was performed through the chest, abdomen, and pelvis. IV Contrast: 100 mL Optiray 320. Reconstructions: Coronal, sagittal, and 3D MIP reconstructions of the aorta. In accordance with CT protocol optimization, one or more of the following dose reduction techniques were utilized for this exam: automated exposure control, adjustment of mA and/or KV based on patient size, or use of iterative reconstructive technique. FINDINGS: Vascular Structures: Aortic dissection/intramural hematoma beginning from the root and extending throughout the entire length of the aorta and into the right iliac arterial system, terminating in the region of the right common femoral artery. Of note, the false lumen does not appear to contain contrast material. Dissection extends throughout the length of the right brachiocephalic artery and into the proximal right common carotid artery over approximately a 3.5 cm length. The carotid artery appears patent distal to the dissection. Dissection extends minimally into the proximal portion of the left common carotid artery without significant stenosis seen. No significant extension of the dissection into the left subclavian artery. No significant extension of the dissection into the celiac artery which arises off of the true lumen. 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 The superior mesenteric arterial branch vessels appear widely patent where seen. Bilateral renal arteries appear to arise off the true lumen without significant involvement of the dissection. Mild narrowing of the true lumen of the right common iliac artery secondary to the dissection. At the distal aspect of the right external iliac artery, there is severe narrowing but the common femoral artery appears widely patent distal to the end of the dissection. Dissection does not appear to extend into the left iliac arterial system. Lungs/Pleura: Mild scarring/atelectasis bilaterally. No evidence of pneumonia or effusion. No overt edema currently. Mediastinum: Please see above for aorta. No bulky adenopathy. Heart size is normal. Abdominal Organs: Previous cholecystectomy. No significant abnormality seen in the liver, pancreas, or spleen. There are bilateral renal cysts without evidence of renal infarction. Peritoneal Cavity: No CT evidence of bowel ischemia. No free air or fluid. Extensive colonic diverticulosis. Pelvic Organs: Prostate mildly enlarged. Bladder unremarkable. Bones: No significant abnormality. Other: Small fat-containing bilateral inguinal hernias without apparent complication. Small fat-containing periumbilical hernia without apparent complication. IMPRESSION: 1. 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 Cardiothoracic surgery consultation suggested. 2. Dissection extends into the proximal aspects of the bilateral carotid arteries but without significant luminal narrowing. 3. 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 No CT evidence of bowel ischemia but this does not exclude the clinical diagnosis. 4. Colonic diverticulosis. 5. Previous cholecystectomy. 6. Enlarged prostate. [facility] The critical result notification system was initiated by Dr. Michael Aquino at 12:43 AM on 08/05/2019. The above critical result findings were discussed with Tye Austin by Dr. Michael Aquino at 12:50 AM on 08/05/2019.
[2019-08-05] MEDS ORDERED: HYDROmorphone 1 MG/ML CARPUJECT IVP STA (01:16)
[2019-08-05] MEDS ORDERED: HYDROmorphone 1 MG/ML CARPUJECT ONE (01:19)
[2019-08-05 01:20] VITALS: BP 139/88
== END 2019-08-05 02:04 | disposition short-term general hospital (02) ==
LOC: EDUNIT# → ED 23:23
DX: I71.03 Dissection of thoracoabdominal aorta (principal); I77.72 Dissection of iliac artery; I77.79 Dissection of other specified artery; I77.71 Dissection of carotid artery; R00.1 Bradycardia, unspecified; K57.30 Diverticulosis of large intestine without perforation or abscess without bleeding; N40.0 Benign prostatic hyperplasia without lower urinary tract symptoms; R91.8 Other nonspecific abnormal finding of lung field; I10 Essential (primary) hypertension
CPT/HCPCS: 36415; 71045; 71275; 74175; 80053; 82550; 83605; 83690; 83880; 84484; 85025; 85610; 85730; 86850; 86900; 86901; 93005; 96374; 96375; 99285; 99291; J1170; Q9967; 80048